=== PATIENT | female | born 1965 | race Caucasian/White ===

== ENCOUNTER 2019-12-12 12:00 | Emergency (ER) | payer OTHER, SELFPAY ==
[2019-12-12 12:07] VITALS: BP 152/89; PULSE 86; RESP 16; TEMP 36.3; O2SAT 98
[2019-12-12 12:48] LABS: Add Urine Microscopic? YES; Appearance Urine Clear (Clear); Bilirubin Urine Negative (Negative); Blood Urine 3+ (Negative); Color Urine Straw (Yellow); Glucose Urine UA Negative (Negative); Ketones Urine Negative (Negative); Leukocyte Esterase Ur 1+ LEU/UL (Negative); Mucus Urine Rare /lpf; Nitrate Urine Negative (Negative); Protein Urine 1+ mg/dL (Negative); RBC Urine 21-50 /hpf (0-2); Specific Grav Ur 1.009 (1.001-1.035); Squamous Epithelial Cell Urine Occasional /hpf (Few); Urobilinogen Urine Negative mg/dL (<2.0); WBC Urine 51-75 /hpf
--- NOTE | 2019-12-12 13:21 | ED.ABDPAIN ---
HPI - Abdominal Pain General Chief Complaint: Urogenital-Female Stated Complaint: Urinary Concerns From PCP Time Seen by Provider: 12/12/19 12:05 History of Present Illness HPI narrative: Patient is a 54-year-old female who presents with having plastic blood in her urine having some suprapubic discomfort and irritation over the last day patient denies any fever chills nausea vomiting patient presents per private vehicle in no distress Related Data Home Medications Medication Instructions Recorded Confirmed lorazepam 12/12/19 omeprazole 12/12/19 sertraline mg 12/12/19 Allergies Allergy/AdvReac Type Severity Reaction Status Date / Time No Known Allergies Allergy Verified 12/12/19 12:10 Review of Systems Review of Systems: All systems reviewed & are unremarkable except as noted in HPI and below PMFSH Social History Social History Gender identity (if verbalized by the patient): Female Exam Narrative: Exam Narrative: GENERAL: Well-appearing, well-nourished, and in no acute distress. HEAD: Normocephalic, atraumatic. EYES: PERRLA and EOMI. ENT: Nares clear, no rhinorrhea or epistaxis. Mucous membranes moist. CHEST: Clear to auscultation. No respiratory distress. No wheezes rales or rhonchi HEART: Regular rate and rhythm. No murmur heard. EXTREMITIES: Normal range of motion. No edema. SKIN: Warm, dry, no rash. NEURO: No focal deficits. Alert and oriented x3. PSYCH: Normal mood and affect. Course Course Emergency Course: Patient in the room in no distress aware of case findings treatment plan and diagnosis agreeing to follow-up as directed or to return if symptoms worsen or concerns Vital Signs Vital signs: Vital Signs Temperature 97.4 F L 12/12/19 12:07 Pulse Rate 86 12/12/19 12:07 Respiratory Rate 16 12/12/19 12:07 Blood Pressure 152/89 H 12/12/19 12:07 Pulse Oximetry 98 12/12/19 12:07 Temperature 97.4 F L 12/12/19 12:07 Pulse Rate 86 12/12/19 12:07 Respiratory Rate 16 12/12/19 12:07 Blood Pressure 152/89 H 12/12/19 12:07 Pulse Oximetry 98 12/12/19 12:07 MDM - Abdominal Pain MDM Narrative Medical decision making narrative: Patient with urinary tract infection as the likely etiology of her symptoms in the room in no distress resting comfortably afebrile nontoxic-appearing agreeing to follow-up with primary care and provided with reasons to return Lab Data Labs: Lab Results 12/12/19 Range/Units 12:15 Urine Color Straw (Yellow) Urine Appearance Clear (Clear) Urine pH 7.0 (5.0-9.0) Ur Specific Helm 1.009 (1.001-1.035) Urine Protein 1+ H (Negative) mg/dL Urine Glucose (UA) Negative (Negative) mg/dL Urine Ketones Negative (Negative) mg/dL Ur Blood (Man) 3+ H (Negative) Urine Nitrate Negative (Negative) Urine Bilirubin Negative (Negative) Urine Urobilinogen Negative (<2.0) mg/dL Leukocyte Esterase Rfl 1+ H (Negative) ANA PAULA/UL Urine RBC 21-50 H (0-2) /hpf Urine WBC 51-75 H /hpf Ur Squamous Epith Cells Occasional (Few) /hpf Urine Mucus Rare /lpf Urine Characteristics Clots Discharge Plan Discharge Clinical Impression: Urinary tract infection Patient Disposition: Home, Self-Care Condition: Stable Instructions: Antibiotic Form Additional Instructions: Follow up with primary care in the next 2-3 days for re-evaluation. Antibiotics as prescribed. Increase fluid intake. Tylenol and Motrin for pain and or fever if needed. Follow up with your doctor for further care. Call your doctor or return to the emergency department if needed for worsening symptoms or problems, especially if you have persistent high fever, vomiting, inability to urinate, weakness, blood in your urine, chnage in mental status, or other serious concerns. Prescriptions: New cephalexin [Keflex] 500 mg capsule 500 mg PO Q12H 10 Days
== END 2019-12-12 13:34 | disposition home or self-care (01) ==
PROVIDERS: Emergency Medicine Emergency Medical Services; Emergency Provider Emergency Medicine; PCP Internal Medicine
DX: N39.0 Urinary tract infection, site not specified (principal)
CPT/HCPCS: 81001; 87077; 87086; 87088; 87186; 99283

== ENCOUNTER → 2020-09-06 14:25 | Outpatient (CLI) | payer OTHER, SELFPAY ==
--- NOTE | ~2020-09-06 | MR_ITS ---
EXAMINATION: MR elbow LT wo con DATE: 09/06/2020 15:13 INDICATION: Lateral sided left elbow pain TECHNIQUE: Magnetic resonance imaging (MRI) of the left elbow was performed without intravenous contr ast. Sequences included coronal, axial, and sagittal PD-weighted FS FSE and coronal, axial, and sagit greta PD-weighted FSE. COMPARISON: None FINDINGS: Osseous/other: Normal alignment. Normal marrow signal with no marrow edema, fracture, osteochondral lesion or abnor mal marrow replacing process. Tendons: Triceps, biceps brachii and brachialis tendons are normal. Common flexor tendon wad is normal. Moder ate tendinopathy without discrete tear at the lateral epicondylar origin of the common extensor tendo n wad. Ligaments: The medial and lateral collateral ligament complexes are normal. Cubital tunnel: Cubital tunnel is unremarkable with normal signal and caliber of the ulnar nerve. Fluid: Physiologic amount of fluid the elbow joint. IMPRESSION: 1. Moderate tendinopathy without discrete tear at the lateral epicondylar origin of the common extens or tendon wad. Reviewed, dictated and finalized at location A. DEVELOPER IMPRESSION: 1. Moderate tendinopathy without discrete tear at the lateral epicondylar origi n of the common extensor tendon wad.
== END ==
PROVIDERS: Visit Provider Nurse Practitioner Family
DX: M25.522 Pain in left elbow (principal)
CPT/HCPCS: 73221

== ENCOUNTER 2021-08-04 21:47 | Emergency (ER) | payer OTHER, SELFPAY ==
[2021-08-04] VITALS (9 sets, daily range): BP systolic 137–150; BP diastolic 88–95; PULSE 84–113; RESP 12–30; TEMP 36.2; O2SAT 97–99
--- NOTE | ~2021-08-04 | XR_ITS ---
EXAMINATION: XR chest 2V EXAM DATE: 08/04/2021 22:36 INDICATION: Chest pain X 3 DAYS, Pain Lt Lateral Side, Covid 07/16/21 TECHNIQUE: Frontal and lateral projections of the chest obtained and reviewed. There is no prior christine dy for comparison. FINDINGS: The lungs are clear. There are no pleural effusions. The cardiomediastinal silhouette is within normal limits. There is no pneumothorax suspected. The bones and soft tissues are unremarkab le. IMPRESSION: No acute cardiopulmonary findings. Reviewed, dictated and finalized at location A. MANUFACTURER
--- NOTE | ~2021-08-04 | CT_ITS ---
EXAMINATION: CTA chest PE protocol DATE: 08/05/2021 08:28 CASH CLERK INDICATION: Chest pain and shortness of breath TECHNIQUE: Computed tomographic angiography (CTA) of the chest was performed with 100 mL Omnipaque-35 0 intravenous contrast. The dose-length product was 877.88 mGy-cm. Maximum intensity projection 3D-re constructions of the aorta and other arteries were constructed by the technologist on a separate work station.. Automated exposure control and iterative reconstruction technique were employed. COMPARISON: Chest x-ray dated 08/04/2019. FINDINGS: The study is technically adequate without evidence for pulmonary embolism. No evidence for thoracic aortic aneurysm or dissection. Small hiatal hernia. No significant pleural or pericardial ef fusion. No thoracic lymphadenopathy. The upper abdomen is unremarkable. No endobronchial lesions. No focal airspace disease. No pneumothorax. No suspicious pulmonary nodules or masses. No acute osseous abnormality. No acute osseous abnormality. Mild thoracic spondylosis. IMPRESSION: 1. No acute cardiopulmonary disease. No evidence for pulmonary embolism. Reviewed, dictated and finalized at location B. CLERK
--- NOTE | 2021-08-04 21:55 | ECG_ITS ---
Measurements Intervals [place] Rate: 109 P: 22 IA: 152 QRS: 48 QRSD: 87 T: 27 QT: 286 QTc: 386 Interpretive Statements SINUS TACHYCARDIA NONSPECIFIC T-WAVE ABNORMALITY- INFERIOR LEADS ABNORMAL ECG Electronically Signed On 08-05-2021 6:20:53 SENIOR PRODUCTION MANAGER by Kai Pires D.O.
[2021-08-04 22:31] LABS: Basophils Percent Auto 0.3 % (0.2-1.2); Eosinophils Absolute Auto 0.4 K/mm3 (0-0.3); Eosinophils Percent Auto 2.8 % (0-4.4); Hematocrit 42.6 % (37.0-47.0); Hemoglobin 13.8 g/dL (12.0-15.0); Immature Granulocyte Absolute 0.04 K/mm3 (0.00-0.031); Immature Granulocyte Percent A 0.3 % (0-0.5); Lymphocytes Absolute Auto 2.86 K/mm3 (0.9-3.2); Lymphocytes Percent Auto 23.2 % (18.3-44.2); Mean Corpuscular HGB Conc 32.4 g/dl (32-36); Mean Corpuscular Hemoglobin 29.1 pg (26-34); Mean Corpuscular Volume 89.7 fl (80-100); Mean Platelet Volume 10.1 fl (7.4-10.4); Monocytes Absolute Auto 0.8 K/mm3 (0.1-0.6); Monocytes Percent Auto 6.2 % (2.6-8.5); Neutrophils Absolute Auto 8.3 K/mm3 (1.3-6.7); Neutrophils Percent Auto 67.2 % (45.5-73.1); Platelet Count Result 236 k/mm3 (150-375); Red Blood Count 4.75 M/mm3 (4.2-5.4); Red Cell Distribution Width 13.2 % (11.5-14.5); White Blood Count 12.3 K/mm3 (4.5-10.0)
[2021-08-04 22:42] LABS: Alanine Aminotransferase 20 U/L (4-35); Albumin Level 4.3 g/dL (3.5-5.1); Alkaline Phosphatase 83 U/L (38-126); Anion Gap 9 mmol/L (8-16); Aspartate Amino Transferase 22 U/L (14-36); Bilirubin,Total 0.4 mg/dL (0.2-1.3); Blood Urea Nitrogen 20 mg/dL (7-17); Calcium 9.2 mg/dL (8.4-10.2); Carbon Dioxide 27 mmol/L (22-30); Chloride 103 mmol/L (98-107); Estimated CRCL calculation 81 ml/min; Estimated Glomerular Filt Rate 58; Glucose 171 mg/dL (65-110); Lipase 184 U/L (23-300); Potassium 4.1 mmol/L (3.4-5.0); Sodium 139 mmol/L (137-145)
[2021-08-04 22:49] LABS: Prothrombin Time 12.8 Seconds (11.1-14.7)
[2021-08-04 22:50] LABS: Partial Thromboplastin Time 24.7 SECONDS (22.3-36.8)
[2021-08-04 22:54] LABS: Troponin I < 0.012 ng/mL (0.000-0.034)
--- NOTE | 2021-08-04 23:34 | PC.NURSE ---
Pt here c/o chest pain under left breast, starting approx 2100. no hx of same. took 2x lorazepam bc she thought it might be a panic attack. denies pain at present. a/o x 4. resps even/nonlabored. skin pwd. resps even/nonlabored. Had covid 07/16/21.
[2021-08-05 00:01] VITALS: PULSE 85
--- NOTE | 2021-08-05 00:07 | ED.GENADULT ---
HPI - General Adult General Chief complaint: Chest Pain Stated complaint: chest pain Time Seen by Provider: 08/04/21 22:57 History of Present Illness HPI narrative: Patient 55-year-old female who presents the emergency department with chief complaint of chest discomfort. Patient reports that she recently had COVID she is also under a lot of stress and has remote history of a superficial thrombus that she was treated with anticoagulants for period of time. The patient states that this evening she felt rather anxious noticed her heart was beating a little fast she took 2 Xanax and then started having discomfort in the left side of her chest patient reports the pain is essentially gone at this point reports heart rate is slowed down back to his normal rate. The patient reports she did get a little short of breath with this when it happened when her heart was beating fast and reports that she had no syncope. The patient states that the pain improved on its own and did not require any interventions. Related Data Home Medications Medication Instructions Recorded Confirmed omeprazole 20 mg PO DAILY 12/12/19 07/01/21 lorazepam 0.5 mg tablet 0.5 mg PO PRN PRN 05/28/21 07/01/21 sertraline 50 mg tablet 50 mg PO DAILY tablet 05/28/21 07/01/21 phentermine 37.5 mg PO DAILY 07/01/21 07/01/21 Allergies Allergy/AdvReac Type Severity Reaction Status Date / Time No Known Allergies Allergy Verified 08/05/21 00:03 Review of Systems Review of Systems: A 10 system review of systems was completed on the patient and is negative except for what is stated in the HPI. Nursing and ancillary documentation was reviewed. [facility] Past Medical History Medical History Anxiety Arthritis Chondromalacia, patella Chronic GERD Chronic headaches Diabetes High cholesterol History of left lateral epicondylitis Lateral epicondylitis Left elbow pain Patellofemoral syndrome Right knee DJD Seasonal allergies Vision abnormalities Surgical History Surgical History Hx of breast lump removal benign Family History Family History Other Arthritis Diabetes mellitus Heart disease Hypertension Malignant neoplasm Social History Social History Smoking status: Former smoker Tobacco type: cigarettes Smoking end date: 07/13/94 Alcohol intake: current Drinks per week: 1 Alcohol use details: rarely Substance use: never Substance use type: does not use Gender identity (if verbalized by the patient): Female Spiritual care concerns: No Exam Narrative: GENERAL: Well-appearing, well-nourished, and in no acute distress. HEAD: Normocephalic, atraumatic. EYES: PERRLA and EOMI. ENT: Nares clear, no rhinorrhea or epistaxis. Mucous membranes moist. NECK: Supple. CHEST: Clear to auscultation. No respiratory distress. HEART: Regular rate and rhythm. No murmur heard. Normal peripheral pulses. ABDOMEN: Soft, nontender, nondistended, normal active bowel sounds. EXTREMITIES: Normal range of motion. No edema. SKIN: Warm, dry, no rash. NEURO: No focal deficits. Alert and oriented x3. PSYCH: Normal mood and affect. Course Course Emergency Course: EKG sinus tachycardia rate of [address] elevation or ST depression cta chest shows no evidence of PE Vital Signs Vital signs: Vital Signs Temperature 36.2 C L 08/04/21 21:51 Pulse Rate 113 H 08/04/21 21:51 Respiratory Rate 16 08/04/21 21:51 Blood Pressure 137/93 H 08/04/21 21:51 Pulse Oximetry 99 08/04/21 21:51 Temperature 36.2 C L 08/04/21 21:51 Pulse Rate 85 08/05/21 00:01 Respiratory Rate 23 H 08/04/21 23:45 Blood Pressure 150/95 H 08/04/21 23:06 Pulse Oximetry 98 08/04/21 23:45 Medical Decision Ma
== END 2021-08-05 01:25 | disposition home or self-care (01) ==
PROVIDERS: Emergency Provider Emergency Medicine; PCP Nurse Practitioner
DX: R07.89 Other chest pain (principal); E11.9 Type 2 diabetes mellitus without complications; E78.00 Pure hypercholesterolemia, unspecified; K21.9 Gastro-esophageal reflux disease without esophagitis; Z86.16 Personal history of COVID-19; F41.9 Anxiety disorder, unspecified; Z87.891 Personal history of nicotine dependence; R00.0 Tachycardia, unspecified; R94.31 Abnormal electrocardiogram [ECG] [EKG]
CPT/HCPCS: 36415; 71046; 71275; 80053; 83690; 84484; 85025; 85610; 85730; 87081; 87880; 93005; 99284; Q9967

== ENCOUNTER 2021-08-20 00:41 | Day surgery (SDC) | payer OTHER, SELFPAY ==
[2021-07-01 11:02] VITALS: BMI 46.9
[2021-08-16 14:28] VITALS: BMI 46.9
[2021-08-20 06:54] VITALS: BP 144/90; PULSE 100; RESP 20; TEMP 35.7; O2SAT 98
[2021-08-20] MEDS: LACTATED RINGERS 1,000 ML 150 ML IV CONT (07:09)
--- NOTE | 2021-08-20 07:16 | WPDGICN ---
Assessment and Plan Assessment and plan (1) Encounter for screening colonoscopy: Code(s): Z12.11 - Encounter for screening for malignant neoplasm of colon Status: Acute Assessment and Plan: Patient presents for screening colonoscopy. Appears to be at average risk for colon polyps. (2) Obese: Code(s): E66.9 - Obesity, unspecified Status: Acute GI Consult Note Consult date/time: 08/20/21 07:16 HPI: Ivonne Lin is a 55 year old female Presents for screening colonoscopy. Patient's current weight appetite bowel movements are normal. She denies abdominal pain. She has had no bleeding. Family history noncontributory. Patient had a colonoscopy 10 years ago that she states is unremarkable. Neoplasia screening will be performed today. Review of Systems Review of Systems: All systems reviewed & are unremarkable except as noted in HPI and below PMFSH Past Medical History Medical History Anxiety Arthritis Chondromalacia, patella Chronic GERD Chronic headaches Diabetes High cholesterol History of left lateral epicondylitis Lateral epicondylitis Left elbow pain Patellofemoral syndrome Right knee DJD Seasonal allergies Vision abnormalities Surgical History Surgical History Hx of breast lump removal benign Family History Family History Other Arthritis Diabetes mellitus Heart disease Hypertension Malignant neoplasm Social History Social History (System 08/06/21 @ 12:17 by Liam Posadas) Smoking status: Former smoker Tobacco type: cigarettes Smoking end date: 07/13/94 Alcohol intake: current Drinks per week: 1 Alcohol use details: rarely Substance use: never Substance use type: does not use Living arrangements: with family Gender identity (if verbalized by the patient): Female Spiritual care concerns: No Meds Home Medications and Allergies Home Medications Medication Instructions Recorded Confirmed Type omeprazole 20 mg PO DAILY 12/12/19 07/01/21 History lorazepam 0.5 mg tablet 0.5 mg PO PRN PRN 05/28/21 07/01/21 History sertraline 50 mg tablet 50 mg PO DAILY tablet 05/28/21 07/01/21 History Allergies Allergy/AdvReac Type Severity Reaction Status Date / Time iodine Allergy Unknown Rash Verified 08/20/21 06:51 Vital Signs Vital Signs - 24 hr 08/20/21 06:54 Temperature 96.3 F L Pulse Rate 100 Respiratory Rate 20 Blood Pressure 144/90 H Pulse Oximetry 98 Exam Narrative: Physical exam reveals patient be alert. Vital signs stable. HEENT exam is unremarkable. Patient is anicteric. Lungs are clear to auscultation and percussion. Heart is without murmur or extra sounds. Abdominal exam Is obese. bowel sounds are present soft nontender with no organomegaly. Digital external rectal exam is normal.
--- NOTE | 2021-08-20 08:03 | WPDANESEPPF ---
Anes - Initial Pre Proc Eval Procedure: Operation Date: 08/20/21 08:00 Proposed Procedures p Screening Colonoscopy - Raad Goodson MD Date/Time: 08/20/21 08:03 Surgeon: Raad Goodson MD Pre Op Diagnosis: neoplasm screening Patient Data Age: 55 Gender: F Height: 1.7 m Weight: 139.3 kg Last Vital Signs Temp 96.3 F L 08/20/21 06:54 Pulse 100 08/20/21 06:54 Resp 20 08/20/21 06:54 BP 144/90 H 08/20/21 06:54 Pulse Ox 98 08/20/21 06:54 Allergies Allergy/AdvReac Type Severity Reaction Status Date / Time iodine Allergy Unknown Rash Verified 08/20/21 06:51 Home Medications Medication Instructions Recorded Confirmed Type omeprazole 20 mg PO DAILY 12/12/19 07/01/21 History lorazepam 0.5 mg tablet 0.5 mg PO PRN PRN 05/28/21 07/01/21 History sertraline 50 mg tablet 50 mg PO DAILY tablet 05/28/21 07/01/21 History Patient hx anesthesia problems: none Family hx anesthesia problems: none Results Review: All pre-operative results and documents have been reviewed as part of the pre-operative evaluation. [facility] Past Medical History Medical History Anxiety Arthritis Chondromalacia, patella Chronic GERD Chronic headaches Diabetes High cholesterol History of left lateral epicondylitis Lateral epicondylitis Left elbow pain Patellofemoral syndrome Right knee DJD Seasonal allergies Vision abnormalities Surgical History Surgical History Hx of breast lump removal benign Family History Family History Other Arthritis Diabetes mellitus Heart disease Hypertension Malignant neoplasm Social History Social History (System 08/06/21 @ 12:17 by Liam Posadas) Smoking status: Former smoker Tobacco type: cigarettes Smoking end date: 07/13/94 Alcohol intake: current Drinks per week: 1 Alcohol use details: rarely Substance use: never Substance use type: does not use Living arrangements: with family Gender identity (if verbalized by the patient): Female Spiritual care concerns: No Anes - Eval Final PreProcedure Day of Procedure 08/20/21 08:03 Patient weight: morbidly obese Heart: regular rate and rhythm Lungs: clear to auscultation Airway: Mallampati scale class II Neurological: alert and oriented Last oral intake: >/= 8 hours ASA classification: III Emergent: no Anesthetic plan: proceed Anesthesia type and monitoring: general GIVS Results Review: All pre-operative results and documents have been reviewed as part of the pre-operative evaluation. Informed Consent: The patient's anesthetic plan and its attendant risks and benefits were discussed with the patient/family/POA. Questions were solicited and answers provided to the satisfaction of the patient/family/POA.
[2021-08-20 08:16] VITALS: BP 127/81; PULSE 85; RESP 20; O2SAT 97
[2021-08-20 08:26] VITALS: BP 149/101; PULSE 79; RESP 21; O2SAT 96
[2021-08-20 08:36] VITALS: BP 152/97; PULSE 83; RESP 23; O2SAT 95
== END 2021-08-20 08:41 | disposition home or self-care (01) ==
PROVIDERS: PCP Nurse Practitioner; Visit Provider Internal Medicine Gastroenterology
PROC: 0DJD8ZZ Inspection of Lower Intestinal Tract, Via Natural or Artificial Opening Endoscopic (ICD-10-PCS; CPT 45378; principal; 2021-08-20 08:00)
DX: Z12.11 Encounter for screening for malignant neoplasm of colon (principal); K64.8 Other hemorrhoids; F41.9 Anxiety disorder, unspecified; M19.90 Unspecified osteoarthritis, unspecified site; M22.40 Chondromalacia patellae, unspecified knee; K21.9 Gastro-esophageal reflux disease without esophagitis; E11.9 Type 2 diabetes mellitus without complications; Z87.891 Personal history of nicotine dependence; E66.9 Obesity, unspecified; Z68.42 Body mass index [BMI] 45.0-49.9, adult
CPT/HCPCS: G0121; J2704; J7120

== ENCOUNTER 2021-11-30 14:05 | Emergency (ER) | payer OTHER, SELFPAY ==
[2021-11-30 14:16] VITALS: BP 146/103; PULSE 83; RESP 18; TEMP 36.4; O2SAT 98
--- NOTE | 2021-11-30 14:33 | ED.DENTAL ---
HPI - Dental/Oral General Chief complaint: Dental/Oral Stated complaint: Lt Mouth Pain Time Seen by Provider: 11/30/21 14:33 Source: patient Mode of arrival: ambulatory Limitations: no limitations History of Present Illness HPI Narrative: Ivonne Lin is a 56 yo female with a hx of crown 5 weeks ago L upper molar, given steroid for pain by dentist a week later, then called pcp as pain persisted and put on abx. Pain is 8/10 now in L ear, jaw, cheek, used oragel, advil last night, today still in pain- rated 8/10 Related Data Home Medications Medication Instructions Recorded Confirmed omeprazole 20 mg PO DAILY 12/12/19 11/30/21 lorazepam 0.5 mg tablet 0.5 mg PO PRN PRN 05/28/21 11/30/21 sertraline 50 mg tablet 50 mg PO DAILY tablet 05/28/21 11/30/21 Allergies Allergy/AdvReac Type Severity Reaction Status Date / Time iodine Allergy Mild Rash Verified 11/30/21 14:12 Review of Systems Review of Systems: CONSTITUTIONAL: Denies fever, chills, sweats. EYES: Denies visual changes, redness, discharge. ENT: Denies rhinorrhea, congestion, sore throat, otalgia. CARDIOVASCULAR: Denies chest pain, palpitations, edema. RESPIRATORY: Denies dyspnea, wheezing, cough GASTROINTESTINAL: Denies abdominal pain, nausea, vomiting, diarrhea. GENITOURINARY: Denies dysuria, hematuria, abnormal discharge SKIN: Denies rash or itching. NEUROLOGIC: Denies numbness, or focal weakness. PSYCHIATRIC: Denies anxiety or depression. Left-sided jaw/tooth, ear pain PMFSH Past Medical History Medical History Anxiety Arthritis Chondromalacia, patella Chronic GERD Chronic headaches Diabetes High cholesterol History of left lateral epicondylitis Lateral epicondylitis Left elbow pain Patellofemoral syndrome Right knee DJD Seasonal allergies Vision abnormalities Surgical History Surgical History Hx of breast lump removal benign Family History Family History Mother Family history of malignant neoplasm of breast in first degree relative Father Family history of mental disorder Hypertension Family history of elevated blood lipids Other Arthritis Carcinoma of colon Diabetes mellitus Family history of alcoholism Family history of arthritis Family history of atrial fibrillation Family history of hearing loss Family history of malignant neoplasm of male breast Family history of osteoporosis Family history of pancreatic cancer Heart disease Malignant neoplasm Social History Social History Smoking status: Former smoker Tobacco type: cigarettes Smoking end date: 07/13/94 Alcohol intake: current Drinks per week: 1 Alcohol use details: rarely Substance use: never Substance use type: does not use Gender identity (if verbalized by the patient): Female Spiritual care concerns: No Comments At time of signature, I agree with nursing past medical, surgical, social and family history. There is no relevant family history pertinent to the presenting complaint. Exam Narrative: GENERAL: This is a well-nourished, well-developed patient, in mild distress. HEAD: normocephalic, atraumatic. EYES: Sclera clear/white. Vision is grossly intact. EARS: External ears normal, auditory canals erythematous and left with swelling, TMs normal without perforation. Hearing grossly intact. NOSE: External nose normal without nasal discharge, nares without redness, no rhinorrhea. Mouth: Poor dentition, multiple teeth missing THROAT: Mucous membranes moist, posterior pharynx mild erythema NECK: Neck supple, non-tender CARDIOVASCULAR: Regular rate and rhythm without murmurs, gallops, or rubs. RESPIRATORY: Clear to auscultation. Breath sounds equal bilaterally. No wheezes, rales, or rhonchi. GASTROINTESTINAL: Abdo
== END 2021-11-30 14:58 | disposition home or self-care (01) ==
PROVIDERS: Emergency Provider Nurse Practitioner; PCP Nurse Practitioner
DX: K08.89 Other specified disorders of teeth and supporting structures (principal); H66.92 Otitis media, unspecified, left ear; Z87.891 Personal history of nicotine dependence; K21.9 Gastro-esophageal reflux disease without esophagitis; E11.9 Type 2 diabetes mellitus without complications; E78.00 Pure hypercholesterolemia, unspecified; M17.11 Unilateral primary osteoarthritis, right knee; F41.9 Anxiety disorder, unspecified
CPT/HCPCS: 99213; G0463

== ENCOUNTER 2022-11-30 14:03 | Emergency (ER) | payer OTHER, SELFPAY ==
[2022-11-30 14:12] VITALS: BP 85/61; PULSE 127; RESP 20; TEMP 36.3; O2SAT 95
--- NOTE | 2022-11-30 14:27 | ED.GENADULT ---
HPI - General Adult General Chief complaint: Allergic Reaction Stated complaint: Vomiting,Itching,Diarrhea Time Seen by Provider: 11/30/22 14:11 Source: patient and RN notes reviewed Mode of arrival: ambulatory Limitations: no limitations History of Present Illness HPI narrative: Patient presents today complaining of sudden onset nausea, vomiting, diarrhea, lower abdominal cramping, and rash to her legs and chest that is severely pruritic. Symptoms began 1.5 hours prior to arrival. She took her Wegovy injection this morning as well as ate some cheerios and a plum. She took a swig of children's benadryl at home as she didn't have any adult Benadryl. Denies shortness of breath, difficulty swallowing, swelling to her face or mouth. Related Data Home Medications Medication Instructions Recorded Confirmed omeprazole 20 mg capsule,delayed 20 mg PO DAILY 12/12/19 11/30/21 release lorazepam 0.5 mg tablet 0.5 mg PO PRN PRN Anxiety 05/28/21 11/30/21 sertraline 50 mg tablet 50 mg PO DAILY 05/28/21 11/30/21 Allergies Allergy/AdvReac Type Severity Reaction Status Date / Time iodine Allergy Mild Rash Verified 11/30/22 14:33 Review of Systems Review of Systems: CONSTITUTIONAL: Denies body aches, fever, chills, or sweats. EYES: Denies visual changes, redness, or discharge. ENT: Denies rhinorrhea, congestion, sore throat, or otalgia. CARDIOVASCULAR: Denies chest pain, palpitations, or edema. RESPIRATORY: Denies cough or dyspnea. GASTROINTESTINAL: + abdominal cramping, nausea, vomiting, diarrhea GENITOURINARY: Denies dysuria or hematuria. SKIN: + pruritic rash MUSCULOSKELETAL: Denies back pain, joint pain, or myalgia. NEUROLOGIC: Denies headache, numbness, tingling, or weakness. PSYCH: Denies depression or anxiety. FORMERLY [facility], 1928–1983 Past Medical History Medical History Anxiety Arthritis Chondromalacia, patella Chronic GERD Chronic headaches Diabetes High cholesterol History of left lateral epicondylitis Lateral epicondylitis Left elbow pain Patellofemoral syndrome Right knee DJD Seasonal allergies Vision abnormalities Surgical History Surgical History Hx of breast lump removal benign Family History Family History Mother Family history of malignant neoplasm of breast in first degree relative Father Family history of mental disorder Hypertension Family history of elevated blood lipids Other Arthritis Carcinoma of colon Diabetes mellitus Family history of alcoholism Family history of arthritis Family history of atrial fibrillation Family history of hearing loss Family history of malignant neoplasm of male breast Family history of osteoporosis Family history of pancreatic cancer Heart disease Malignant neoplasm Social History Social History Smoking status: Former smoker Tobacco type: cigarettes Smoking end date: 07/13/94 Alcohol intake: current Drinks per week: 1 Alcohol use details: rarely Substance use: never Substance use type: does not use Living arrangements: with family Gender identity (if verbalized by the patient): Female Spiritual care concerns: No Course Course Level of Care: Express Care Visit Vital Signs Vital signs: Vital Signs Temperature 97.4 F L 11/30/22 14:12 Pulse Rate 127 H 11/30/22 14:12 Respiratory Rate 11/30/22 14:12 Blood Pressure 85/61 L 11/30/22 14:12 Pulse Oximetry 95 11/30/22 14:12 Oxygen Delivery Room Air 11/30/22 14:12 Temperature 97.4 F L 11/30/22 14:12 Pulse Rate 127 H 11/30/22 14:12 Respiratory Rate 11/30/22 14:12 Blood Pressure 85/61 L 11/30/22 14:12 Pulse Oximetry 95 11/30/22 14:12 Oxygen Delivery Room Air 11/30/22 14:12 Reviewed. Recheck of patient's blood
[2022-11-30] MEDS: diphenhydrAMINE HCl INJ 50 MG/ML VIAL IV PUSH (14:35)
[2022-11-30 14:40] VITALS: BP 101/69; PULSE 125; RESP 18; O2SAT 99
== END 2022-11-30 14:40 | disposition short-term general hospital (02) ==
PROVIDERS: Emergency Provider Nurse Practitioner; PCP Nurse Practitioner
DX: T78.40XA Allergy, unspecified, initial encounter (principal); M19.90 Unspecified osteoarthritis, unspecified site; K21.9 Gastro-esophageal reflux disease without esophagitis; E11.9 Type 2 diabetes mellitus without complications; E78.00 Pure hypercholesterolemia, unspecified; M17.11 Unilateral primary osteoarthritis, right knee; F41.9 Anxiety disorder, unspecified; Z87.891 Personal history of nicotine dependence
CPT/HCPCS: 96374; 99215; G0463; J1200

== ENCOUNTER 2022-11-30 14:59 | Emergency (ER) | payer OTHER, SELFPAY ==
[2022-11-30 15:00] VITALS: BP 130/64; PULSE 87; RESP 15; O2SAT 95
--- NOTE | 2022-11-30 15:25 | PC.NURSE ---
All patient documentation completed by this RN, Flavia Correa. Due to computer error documentation appears as though it was documented by another RN. It was not and was in fact documented by this RN.
--- NOTE | 2022-11-30 15:25 | ED.ALLEREA ---
HPI - Allergic Reaction General Chief complaint: Allergic Reaction Stated complaint: allergic reaction Time Seen by Provider: 11/30/22 15:06 History of Present Illness HPI narrative: 57-year-old female presented to the emergency department for evaluation after a suspected allergic reaction. Patient has no prior medication allergies other than iodine. Patient did take her fourth Wegovy shot today. Patient had no prior issues with the other shots. Patient states after taking the shot having had breakfast of foods that she normally eats patient had onset of abdominal cramping diarrhea and nausea vomiting. Patient states he then broke out in an itchy rash on her hands arms chest and legs. Patient denied any difficulty breathing or swallowing. Patient did present to the urgent care for evaluation and patient was treated with IV Benadryl and transferred to the emergency department by EMS. Upon arrival to the ED patient states that the itching has improved but she does feel swollen. Patient denies any difficulty breathing or swallowing at this time. Patient does report some epigastric tenderness to palpation. Related Data Home Medications Medication Instructions Recorded Confirmed omeprazole 20 mg capsule,delayed 20 mg PO DAILY 12/12/19 11/30/22 release sertraline 50 mg tablet 50 mg PO DAILY 05/28/21 11/30/22 semaglutide (weight loss) 0.25 0.25 mg subcut WEEKLY 11/30/22 11/30/22 mg/0.5 mL subcutaneous pen injector (Wegovy) Allergies Allergy/AdvReac Type Severity Reaction Status Date / Time iodine Allergy Mild Rash Verified 11/30/22 15:10 Review of Systems Review of Systems: All systems reviewed & are unremarkable except as noted in HPI and below PMFSH Past Medical History Medical History Anxiety Arthritis Chondromalacia, patella Chronic GERD Chronic headaches Diabetes High cholesterol History of left lateral epicondylitis Lateral epicondylitis Left elbow pain Patellofemoral syndrome Right knee DJD Seasonal allergies Vision abnormalities Surgical History Surgical History Hx of breast lump removal benign Family History Family History Mother Family history of malignant neoplasm of breast in first degree relative Father Family history of mental disorder Hypertension Family history of elevated blood lipids Other Arthritis Carcinoma of colon Diabetes mellitus Family history of alcoholism Family history of arthritis Family history of atrial fibrillation Family history of hearing loss Family history of malignant neoplasm of male breast Family history of osteoporosis Family history of pancreatic cancer Heart disease Malignant neoplasm Social History Social History Smoking status: Former smoker Tobacco type: cigarettes Smoking end date: 07/13/94 Alcohol intake: current Drinks per week: 1 Alcohol use details: rarely Substance use: never Substance use type: does not use Living arrangements: with family Gender identity (if verbalized by the patient): Female Spiritual care concerns: No Exam Narrative: APPEARANCE: Well appearing, no pain, no distress, well-nourished. HEAD: normocephalic, atraumatic. EYES: PERRLA/EOMI, conjunctivae clear. NOSE: Normal no drainage NECK: Supple. No adenopathy, no masses. RESPIRATORY: Airway patent, respirations nonlabored. Clear to auscultation bilaterally, no rales, rhonchi, wheezing. CARDIOVASCULAR: Regular rate and rhythm without murmurs rubs or gallops. ABDOMINAL: Soft, normal bowel sounds, nondistended, epigastric tenderness to palpation MUSCULOSKELETAL: Moves all extremities. Strength/ROM intact, No edema, No calf tenderness. NEURO: Alert. Cranial nerves II through XII intact. Grossly intact SKIN: Wa
[2022-11-30] MEDS: methylPREDNISolone SOD SUCC 125 MG VIAL IV PUSH (15:34)
[2022-11-30 16:30] LABS: Basophils Percent Auto 0.3 % (0.2-1.2); Eosinophils Absolute Auto 0.1 K/mm3 (0-0.3); Eosinophils Percent Auto 0.5 % (0-4.4); Hematocrit 45.8 % (37.0-47.0); Hemoglobin 14.9 g/dL (12.0-15.0); Immature Granulocyte Absolute 0.03 K/mm3 (0.00-0.031); Immature Granulocyte Percent A 0.3 % (0-0.5); Lymphocytes Absolute Auto 1.35 K/mm3 (0.9-3.2); Lymphocytes Percent Auto 12.4 % (18.3-44.2); Mean Corpuscular HGB Conc 32.5 g/dl (32-36); Mean Corpuscular Hemoglobin 29.1 pg (26-34); Mean Corpuscular Volume 89.5 fl (80-100); Mean Platelet Volume 9.7 fl (7.4-10.4); Monocytes Absolute Auto 0.5 K/mm3 (0.1-0.6); Monocytes Percent Auto 4.7 % (2.6-8.5); Neutrophils Absolute Auto 8.9 K/mm3 (1.3-6.7); Neutrophils Percent Auto 81.8 % (45.5-73.1); Platelet Count Result 230 k/mm3 (150-375); Red Blood Count 5.12 M/mm3 (4.2-5.4); Red Cell Distribution Width 13.4 % (11.5-14.5); White Blood Count 10.9 K/mm3 (4.5-10.0)
[2022-11-30 16:31] LABS: Alanine Aminotransferase 25 U/L (6-35); Albumin Level 4.1 g/dL (3.5-5.1); Alkaline Phosphatase 72 U/L (38-126); Anion Gap 8 mmol/L (8-16); Aspartate Amino Transferase 27 U/L (14-36); Bilirubin,Total 0.7 mg/dL (0.2-1.3); Blood Urea Nitrogen 18 mg/dL (7-17); Calcium 8.6 mg/dL (8.4-10.2); Carbon Dioxide 27 mmol/L (22-30); Chloride 104 mmol/L (98-107); Estimated CRCL calculation 78 ml/min; Estimated Glomerular Filt Rate 57; Glucose 128 mg/dL (65-110); Lipase 100 U/L (23-300); Potassium 3.5 mmol/L (3.4-5.0); Sodium 139 mmol/L (137-145)
[2022-11-30 16:59] VITALS: BP 132/60; PULSE 83; RESP 17; TEMP 37.1; O2SAT 99
== END 2022-11-30 17:01 | disposition home or self-care (01) ==
PROVIDERS: Emergency Provider Emergency Medicine; PCP Nurse Practitioner
DX: R11.2 Nausea with vomiting, unspecified (principal); R10.9 Unspecified abdominal pain; L29.9 Pruritus, unspecified; T38.3X5A Adverse effect of insulin and oral hypoglycemic [antidiabetic] drugs, initial encounter; E11.9 Type 2 diabetes mellitus without complications; E78.00 Pure hypercholesterolemia, unspecified; M17.11 Unilateral primary osteoarthritis, right knee; K21.9 Gastro-esophageal reflux disease without esophagitis; F41.9 Anxiety disorder, unspecified; Z87.891 Personal history of nicotine dependence
CPT/HCPCS: 36415; 80053; 83690; 85025; 96374; 99284; J2930

== ENCOUNTER 2023-09-29 14:58 | Outpatient (CLI) | payer OTHER, SELFPAY ==
--- NOTE | ~2023-09-29 | CT_ITS ---
EXAMINATION: CT abdomen pelvis w con DATE: 09/29/2023 15:46 INDICATION: Epigastric abdominal pain, bloating. TECHNIQUE: Computed tomography (CT) of the abdomen and pelvis was performed with 100 CC Omnipaque 350 intravenous contrast. Automated exposure control and iterative reconstruction technique were employe d. Exam dose: 1622.41 mGy-cm total exam DLP. COMPARISON: None. FINDINGS: The lung bases are clear of infiltrate or consolidation. Normal heart size. No pericardial or pleural effusion. The gallbladder is present. No bile duct or pancreatic duct dilatation. Hepatic steatosis. No hepatic, splenic, pancreatic, and adrenal space-occupying mass lesion. 1.4 cm r ight renal cyst. The kidneys are otherwise unremarkable. No urinary tract calculus or hydroureteronep hrosis. The urinary bladder, uterus and adnexal areas are unremarkable. Normal caliber of the abdominal aorta. No intraperitoneal or retroperitoneal or pelvic mass lesion or adenopathy or ascites. The uterus, adnexal areas and urinary bladder are unremarkable. Small sliding hiatal hernia. Mild sigmoid diverticulosis; no CT evidence of diverticulitis. No bowel obstruction, bowel wall thick ening, pneumatosis or intraperitoneal free air. No evidence of appendicitis. No suspicious osteolytic or osteoblastic lesions. IMPRESSION: Small sliding hiatal hernia Hepatic steatosis 1.4 cm right renal cyst Normal appendix Mild sigmoid diverticulosis Reviewed, dictated and finalized at [facility]. Reviewed, dictated and finalized at location L.
== END 2023-09-29 14:59 | disposition home or self-care (01) ==
LOC: ANHIMG 15:01
PROVIDERS: PCP Nurse Practitioner; Visit Provider Nurse Practitioner
DX: R11.0 Nausea (principal); R10.13 Epigastric pain; K44.9 Diaphragmatic hernia without obstruction or gangrene; K76.0 Fatty (change of) liver, not elsewhere classified; K57.30 Diverticulosis of large intestine without perforation or abscess without bleeding
CPT/HCPCS: 74177; Q9967

== ENCOUNTER 2024-12-27 10:48 | Outpatient (CLI) | payer OTHER, SELFPAY ==
--- NOTE | ~2024-12-27 | US_ITS ---
LEFT UPPER EXTREMITY VENOUS ULTRASOUND Ordering provider: DESMOND Sapp History: . M79.602 - Pain in arm, unspecified . Comparison: None. FINDINGS: --JUGULAR: Patent and free of thrombus. Normal compressibility, phasic flow and augmentation. --SUBCLAVIAN: Patent and free of thrombus. Normal compressibility, phasic flow and augmentation. --AXILLARY: Patent and free of thrombus. Normal compressibility, phasic flow and augmentation. --BRACHIAL: Patent and free of thrombus. Normal compressibility, phasic flow and augmentation. --CEPHALIC: Patent and free of thrombus. Normal compressibility, phasic flow and augmentation. --BASILIC: Patent and free of thrombus. Normal compressibility, phasic flow and augmentation. --RADIAL: Patent and free of thrombus. Normal compressibility, phasic flow and augmentation. --ULNAR: Patent and free of thrombus. Normal compressibility, phasic flow and augmentation. IMPRESSION: Negative left upper extremity venous US. No deep vein thrombosis. Reviewed, dictated and finalized at location A.
--- OUTSIDE RECORDS SUMMARY | 2024-12-27 11:55 | XMS_ITS | Clinical Summary ---
Author Organization [facility] Address [address] [place] [address] Care Team Providers Care Machine Cloth Trimmer Name Role Phone Unavailable Primary Care Provider Unavailabl e Social History Tobacco Use Types Packs/Day Years Used Date Smoking Tobacco: Never Assessed Comments Unknown Sex and Gender Information Value Date Recorded Sex Assigned at Not on file Legal Sex Female 12:44 AM CDT Gender Identity Not on file Sexual Orientation Not on file Plan of Treatment Health Maintenance Due Date Last Done Comments Hepatitis C Virus (HCV) Screening 1966 TdaP Immunization 1966 Hepatitis B Immunization (1 of 3 - 19+ 3-dose series) 1985 Pap Smear 09/28/1987 Cervical Cancer Screening (CCS) 1996 HPV/Cotest 1996 Colonoscopy 09/28/2011 Colorectal Cancer Screening 09/28/2011 Cologuard 2016 Immunochemical Fecal Occult Blood 2016 Mammogram 2016 Pneumococcal Immunization (5 0+ years) (1 of 1 - PCV) 2016 Zoster Immunization (1 of 2) 2016 Influenza Immunization (#1) 2024 04/25/2020 SARS-COV-2 Immunization (2023- season) 2024 09/30/2020, 09/09/2020 Respiratory Syncytial Virus (RSV) Immunization (Adult) (1 - 1-dose 75+ series) 2041 Meningococcal Immunization (ACWY) Aged Out No longer eligible b ased on patient's age to complete this topic Pneumococcal Immunization Combined Aged Out No longer eligible b ased on patient's age to complete this topic Rotavirus Immunization Aged Out No lo nger eligible based on patient's age to complete this topic
--- OUTSIDE RECORDS SUMMARY | 2024-12-27 11:55 | XMS_ITS | CONTINUITY OF CARE DOCUMENT ---
Author Name foreign carrasquillo Address Unknown Organization [facility] Address [id number] [place] [address] [address] [place] [address] Phone [phone] Care Team Providers Care Conciliator Name Role Phone foreign carrasquillo Unavailable Unavailable
--- OUTSIDE RECORDS SUMMARY | 2024-12-27 11:55 | XMS_ITS | Clinical Summary ---
Author Organization [facility] Address [address] [address] Care Team Providers Care Reject Opener Name Role Phone Ángela Laird APRN-[facility] Primary Care Provi yeyo Source Comments [facility] [employer],non-owned Affiliates and Associated Physician Practices is amultiple site organization consisting of ambulatory clinics and hospital sitesin [place], [place]. This disclosure is being madepursuant to the Care Everywhere program and may not contain all information available regarding this patient. Last updated 18.[facility] Active Problems Problem Noted Date Diagnosed Date Fatty liver 11/27/2023 Overview (11/27/2023): 11/27/23 Fibroscan CAP 270, LSM 4.8 kPa Social History Tobacco Use Types Packs/Day Years Used Date Smoking Tobacco: Never Assessed Comments Unknown Sex and Gender Information Value Date Recorded Sex Assigned at Not on file Legal Sex Female 8:23 AM CDT Gender Identity Not on file Sexual Orientation Not on file Plan of Treatment Health Maintenance Due Date Last Done Comments COLOGUARD (AGES 45-75) - COLON CA SCREENING 1966 COLON MONITORING 1966 COLONOSCOPY - COLON CA SCREENING 1966 CT COLONOGRAPHY - COLON CA SCREENING 1966 Colorectal Cancer Screening 1966 FIT - COLON CA SCREENING 1966 FLEX SIG - COLON CA SCREENING 1966 LIPID TESTING 1966 PAP SMEAR 1966 HIV SCREENING 1981 DTAP/TDAP/TD VACCINES (1 - Tdap) 1985 HEPATITIS B VACCINE (1 of 3 - 19+ 3-dose series) 1985 PNEUMOCOCCAL VACCINE 50+ (1 of 1 - PCV) 2016 ZOSTER VACCINE (1 of 2) 2016 COVID-19 VACCINE (2 - season) 2024 08/11/2021 DEPRESSION SCREENING 07/13/2024 MAMMOGRAM 12/25/2024 12/25/2022, 03/2022, 10/29/2020, Additional history exists INFLUENZA VACCINE (Season Ended) 2025 04/25/2020 HEPATITIS C SCREENING Completed 12/05/2022 HIB VACCINE Aged Out No longer eligi ble based on patient's age to complete this topic HPV VACCINE Aged Out No longer eligi ble based on patient's age to complete this topic MENINGOCOCCAL (Group B) VACCINE SHARED DECISION-MAKING Aged Out No longer eligible based on patient's age to complete this topic MENINGOCOCCAL GROUPS A/C/Y/W VACCINE Aged Out No longer eligible based on patient's age to complete this topic Insurance [facility] Care Teams Reject Opener Relationship Specialty Start Date End Date Ángela Laird APRN-[facility] [address], [address] [place] [address] PCP - General Nurse Practitioner 11/13/23
--- OUTSIDE RECORDS SUMMARY | 2024-12-27 11:55 | XMS_ITS | Continuity of Care Document ---
Author Organization [facility] Address [address] [place] [address] [place] [address] Phone Care Team Providers Care Ship Scraper Name Role Phone Unavailable Unavailable Unavailable Advance Directives Directive Yes / No Effective Date File Name No Information Encounters Encounter Description Practice Location Reason(s) For Visit Diagnoses Date Provider Providers Copied on Encounter [facility], [address] [place] [address] [address], [place], [place], [id number], [place] tel:[phone] [facility] [place] No Information Mar-2 1-200 0 No Information Family History Family Member Type Diagnosis Age At Onset No Information Payers Payer name Insurance type Covered republican ID Authoriza tion(s) No Information Social History [...]
== END 2024-12-27 10:49 | disposition home or self-care (01) ==
LOC: ANHIMG 10:49
PROVIDERS: PCP Nurse Practitioner; Visit Provider Nurse Practitioner Family
DX: M79.602 Pain in left arm (principal)
CPT/HCPCS: 93971

== ENCOUNTER 2025-04-05 00:29 | Day surgery (SDC) | payer OTHER, SELFPAY ==
--- OUTSIDE RECORDS SUMMARY | 1999-10-01 03:30 | XMS_ITS | Continuity of Care Document ---
Author Organization [facility] Address [address] [place] [address] [place] [address] Phone Care Team Providers Care Biology Teacher Name Role Phone Unavailable Unavailable Unavailable Advance Directives Directive Yes / No Effective Date File Name No Information Encounters Encounter Description Practice Location Reason(s) For Visit Diagnoses Date Provider Providers Copied on Encounter [facility], [address] [place] [address] [address], [place], [place], [id number], [place] tel:[phone] [facility] [place] No Information Mar-2 1-200 0 No Information Family History Family Member Type Diagnosis Age At Onset No Information Payers Payer name Insurance type Covered green party ID Authoriza tion(s) No Information Social History Type Description Quantity Date Captured Comments Sex Female Smoking Status No Information Chief Complaint And Reason For Visit No Information Reason For Referral Reason For Referral No Information History Of Present Illness Encounter Date Complaint History Of Prese nt Illness No Information Functional Status Date Functional Assessmen t No Information Instructions Date Instruction Additional Infor mation No Information Assessments Type Assessment Date No Information Patient Care Teams Name Effective Dates (start - stop) Status Members No Information
--- OUTSIDE RECORDS SUMMARY | 2024-10-08 04:00 | XMS_ITS ---
Author Organization [facility] Address [address] [place] [id number] Care Team Providers Care Assistant Project Engineer Name Role Phone Migration, Provider Unavailable Unavailable REASON FOR VISIT EMR-Mika Encounters Encounter Location Date Provider Diagnosis [facility] [address] [place], [place] [id number] 10/08/2024 Prov ider Migration Plan Of Treatment No Information Progress Notes * ANEUDY JOHNSON ANNDOB: [birth year] (59 yo Other)Acc No.[id number]:10/08/2024 Patient: ANEUDY HINTON :1965 A ge:59 Y S ex:Unknown Address: [place], [address] Subjective: * Chief Complaints: * E MR-Mika * * Date:
--- OUTSIDE RECORDS SUMMARY | 2024-10-09 04:00 | XMS_ITS ---
Author Organization [facility] Address [address] [place] [id number] Care Team Providers Care Brine Maker Name Role Phone Migration, Provider Unavailable Unavailable REASON FOR VISIT EMR-Mika Encounters Encounter Location Date Provider Diagnosis [facility] [address] [place], [place] [id number] 10/09/2024 Prov ider Migration Plan Of Treatment No Information Progress Notes * ANEUDY JOHNSON ANNDOB: [birth year] (59 yo Other)Acc No.[id number]:10/09/2024 Patient: ANEUDY HINTON :1965 A ge:59 Y S ex:Unknown Address: [place], [address] Subjective: * Chief Complaints: * E MR-Mika * * Date:
[2025-03-27 09:16] VITALS: BMI 41.5
--- OUTSIDE RECORDS SUMMARY | 2025-04-05 00:33 | XMS_ITS | Encounter Summary ---
Author Organization [facility] Address [address] [place] [address] Care Team Providers Care Terra Cotta Roofer Name Role Phone Ángela Laird NP Primary Care Provider [phone] Encounter Details Date Type Department Care Team (Late st Contact Info) Description 06/16/2021 Inside Social Message Enc [facility] Medical Group Family Medicine - [place] [address] [place] [phone] Ángela Laird, ZAHIDA [address] [place] [address] [place] [address] phentermine Social History Tobacco Use Types Packs/Day Years Used Date Smoking Tobacco: Never Smokeless Tobacco: Never Comments:Smoked a bit when i was young around 21 Alcohol Use Standard Drinks/Week Comments Yes 1 (1 standard drink = 0.6 oz pur e alcohol) socially- on occasions only PHQ-2 Answer Date Recorded PHQ-2 Score - If the patient scores above 3, please move on to questions 3-9 0 12/12/2020 Comments No Sex and Gender Information Value Date Recorded Sex Assigned at Female 07/26/2024 8:13 AM DONOR SERVICES COORDINATOR Legal Sex Female 9:07 AM CDT Gender Identity Not on file Sexual Orientation Not on file COVID-19 Exposure Response Date Recorded In the last month, have you been in contact with someone who was confirmed or suspected to have Coronavirus / COVID-19? No / Unsure 06/02/2021 7:12 PM DONOR SERVICES COORDINATOR documented as of this encounter Plan of Treatment Not on file documented as of this encounter Visit Diagnoses Not on filedocumented in this encounter Additional Health Concerns Infection Onset Date Last Indicated Resolved Time COVID-19 Rule Out 07/09/2021 07/09/2021 07/09/2021 11:51 AM DONOR SERVICES COORDINATOR COVID-19 Rule Out 07/09/2021 07/09/2021 07/10/2021 6:53 PM DONOR SERVICES COORDINATOR COVID-19 Rule Out 10/29/2022 10/29/2022 10/29/2022 10:01 AM CDT COVID-19 Rule Out 10/29/2022 10/29/2022 10/30/2022 2:51 PM CDT COVID-19 Rule Out 06/18/2023 06/18/2023 06/18/2023 11:31 AM DONOR SERVICES COORDINATOR Assessment Noted Time PHQ-9 Depression Total Score: 4 12/13/19 10:34 AM CDT documented as of this encounter Care Teams Terra Cotta Roofer Relationship Specialty Start Date End Date Ángela Laird NP [address] [place] [address] PCP - General NURSE PRACTITIONER 12/06/20 documented as of this encounter
--- OUTSIDE RECORDS SUMMARY | 2025-04-05 00:33 | XMS_ITS | Encounter Summary ---
Author Organization [facility] Address [address] [place] [address] Care Team Providers Care Acoustic Warfare Analyst Name Role Phone Ángela Laird NP Primary Care Provider [phone] Encounter Details Date Type Department Care Team (Late st Contact Info) Description 04/01/2023 InGaugeIt Message Enc [facility] Medical [facility] Family Medicine - [place] [address] [place] [address] [facility] Provider test results Social History Tobacco Use Types Packs/Day Years Used Date Smoking Tobacco: Never Passive Smoke Exposure: Never Smokeless Tobacco: Never Comments:Smoked a bit when i was young around 21 Alcohol Use Standard Drinks/Week Comments Yes 8 (1 standard drink = 0.6 oz pur e alcohol) Per month PHQ-2 Answer Date Recorded Patient Health Questionnaire-2 Score 2 08/20/2022 Comments No Sex and Gender Information Value Date Recorded Sex Assigned at Female 07/26/2024 8:13 AM CLAIM REP Legal Sex Female 9:07 AM CDT Gender Identity Not on file Sexual Orientation Not on file documented as of this encounter Plan of Treatment Not on file documented as of this encounter Visit Diagnoses Not on filedocumented in this encounter Additional Health Concerns Infection Onset Date Last Indicated Resolved Time COVID-19 Rule Out 06/18/2023 06/18/2023 06/18/2023 11:31 AM CLAIM REP Assessment Noted Time PHQ-9 Depression Total Score: 8 08/20/19 11:31 AM CLAIM REP documented as of this encounter Care Teams Acoustic Warfare Analyst Relationship Specialty Start Date End Date Ángela Laird NP [address] [place] [address] [place] [address] PCP - General NURSE PRACTITIONER 12/06/20 documented as of this encounter
--- OUTSIDE RECORDS SUMMARY | 2025-04-05 00:33 | XMS_ITS | Clinical Summary ---
Author Organization [facility] Address [address] [place] [place] [address] Care Team Providers Care Repair Manager Name Role Phone Ángela Laird APRN-[facility] Primary Care Provi yeyo Source Comments [facility]non-owned Affiliates and Associated Physician Practices is amultiple site organization consisting of ambulatory clinics and hospital sitesin [place], [place], [place] and [place]. This disclosure is being madepursuant to the Care Everywhere program and may not contain all information available regarding this patient. Last updated 18.[facility] Active Problems Problem Noted Date Diagnosed Date [...] COLON CA SCREENING 1966 LIPID TESTING 1966 HIV SCREENING 1981 DTAP/TDAP/TD VACCINES (1 - Tdap) 1985 HEPATITIS B VACCINE (1 of 3 - 19+ 3-dose series) 1985 PAP SMEAR 09/28/1987 PNEUMOCOCCAL VACCINE 50+ (1 of 1 - PCV) 2016 ZOSTER VACCINE (1 of 2) 2016 DEPRESSION SCREENING 07/13/2024 MAMMOGRAM 12/25/2024 12/25/2022, 06/0 03/2022, 10/29/2020, Additional history exists COVID-19 VACCINE (2 - 2024- season) 2025 08/11/2021 INFLUENZA VACCINE (#1) 2025 04/25/2020 HEPATITIS C SCREENING Completed 12/05/2022 [...] patient's age to complete this topic Insurance [facility] Care Teams Repair Manager Relationship Specialty Start Date End Date Ángela Laird APRN-[facility] [address], [address] [place] [address] PCP - General Nurse Practitioner 11/13/23
--- OUTSIDE RECORDS SUMMARY | 2025-04-05 00:33 | XMS_ITS | Encounter Summary ---
Author Organization [facility] Address [address] [place] [address] Care Team Providers Care Social Media Marketing Analyst Name Role Phone Ángela Laird NP Primary Care Provider [phone] Encounter Details Date Type Department Care Team (Late st Contact Info) Description 04/24/2022 [employer] Message Enc [facility] Medical Group Family Medicine - [place] [address] [facility] [address] [place], [place] [address], [place] [address] Ángela Laird, ZAHIDA [address] [place] [address] follow up on blood pressure Social History Tobacco Use Types Packs/Day Years Used Date Smoking Tobacco: Never Smokeless Tobacco: Never Comments:Smoked a bit when i was young around 21 Alcohol Use Standard Drinks/Week Comments Yes 1 (1 standard drink = 0.6 oz pur e alcohol) socially- on occasions only PHQ-2 Answer Date Recorded PHQ-2 Score - If the patient scores above 3, please move on to questions 3-9 6 02/07/2022 Comments No Sex and Gender Information Value Date Recorded Sex Assigned at Female 07/26/2024 8:13 AM PHARMACIST HELPER Legal Sex Female 9:07 AM CDT Gender Identity Not on file Sexual Orientation Not on file documented as of this encounter Plan of Treatment Not on file documented as of this encounter Visit Diagnoses Not on filedocumented in this encounter Additional Health Concerns Infection Onset Date Last Indicated Resolved Time COVID-19 Rule Out 10/29/2022 10/29/2022 10/29/2022 10:01 AM CDT COVID-19 Rule Out 10/29/2022 10/29/2022 10/30/2022 2:51 PM CDT COVID-19 Rule Out 06/18/2023 06/18/2023 06/18/2023 11:31 AM PHARMACIST HELPER Assessment Noted Time PHQ-9 Depression Total Score: 22 022 8:50 AM CDT documented as of this encounter Care Teams Social Media Marketing Analyst Relationship Specialty Start Date End Date Ángela Laird NP [address] [place] [address] [place] [address] PCP - General NURSE PRACTITIONER 12/06/20 documented as of this encounter
--- OUTSIDE RECORDS SUMMARY | 2025-04-05 00:33 | XMS_ITS | Encounter Summary ---
Author Organization [facility] - [facility] Address [address] [place] [address] Care Team Providers Care Mental Health Program Specialist Name Role Phone Ángela Laird NP Primary Care Provider [phone] Encounter Details Date Type Department Care Team (Late st Contact Info) Description 03/24/2022 [employer] Message [facility] Patient Accounts [address] [place] [address] [facility] Monthly Credit Card Payments Social History Tobacco Use Types Packs/Day Years [...] Sex Assigned at Female 07/26/2024 8:13 AM MAPLE PRODUCTS SUPERVISOR Legal Sex Female 9:07 AM CDT Gender Identity Not on file Sexual Orientation Not on file COVID-19 Exposure Response Date Recorded In the last 10 days, have yo u been in contact with someone who was confirmed or suspected to have Coronavirus/COVID-19? No / Unsure 03/05/2022 7:46 AM CDT documented as of this encounter Plan of Treatment Not on file documented as of this encounter Visit Diagnoses Not on filedocumented in this encounter Additional Health Concerns Infection Onset Date Last Indicated Resolved Time COVID-19 Rule Out 10/29/2022 10/29/2022 10/29/2022 10:01 AM CDT COVID-19 Rule Out 10/29/2022 10/29/2022 10/30/2022 2:51 PM CDT COVID-19 Rule Out 06/18/2023 06/18/2023 06/18/2023 11:31 AM MAPLE PRODUCTS SUPERVISOR Assessment Noted Time PHQ-9 Depression Total Score: 22 022 8:50 AM CDT documented as of this encounter Care Teams Mental Health Program Specialist Relationship Specialty Start Date End Date Ángela Laird NP [address] [place] [address] PCP - General NURSE PRACTITIONER 12/06/20 documented as of this encounter
--- OUTSIDE RECORDS SUMMARY | 2025-04-05 00:33 | XMS_ITS | Clinical Summary ---
Author Organization [facility] Address Formerly [facility], [id number] [place] [address] Care Team Providers Care Potato Spotter Name Role Phone Ángela Laird NP Primary Care Provider [phone] [phone] Allergies No known active allergies Medications Blood Glucose Monitoring Suppl (ONE TOUCH ULTRA 2) w/Device KitIndications:D iabetes mellitus ([facility]) 1 Device by Does not apply route 2 (two) times daily. 1 kit 2 Active Lancets (ONETOUCH ULTRASOFT) lancetsIndicatio ns:Diabetes mellitus ([facility]) 1 each by Other route 2 (two) times daily as needed. Use as instructed 100 each 3 2 Active EPINEPHrine (EPIPEN 2-STEVEN) 0.3 MG/0.3ML injectionIndicat ions:Allergic reaction to drug, initial encounter Inject 0.3 mLs (0.3 mg total) into the muscle as needed for Anaphylaxis. 1 each 3 Active Multiple Vitamins-Mineral s (CENTRUM ADULT OR) Take by mouth daily. Active VITAMIN C, CALCIUM ASCORBATE, OR Take by mouth daily. Active fish oil (OMEGA-3 FATTY ACID) 1000 MG Cap capsule Take 1 capsule (1,000 mg total) by mouth daily. Active ONETOUCH ULTRA test stripIndications :Diabetes mellitus ([facility]) TEST THREE TIMES DAILY TO FOUR TIMES DAILY DIRECTED 300 strip 3 4 Active vitamin D3 (CHOLECALCIFEROL ) 1.25 mg capsuleIndicatio ns:Vitamin D deficiency Take 1 capsule (50,000 Units total) by mouth once a week. 8 capsule 5 Active sertraline (ZOLOFT) 50 MG tabletIndication s:Anxiety Take 1 tablet (50 mg total) by mouth daily. 90 tablet 1 5 Active omeprazole (PRILOSEC) 20 MG capsuleIndicatio ns:Gastroesophag eal reflux disease, unspecified whether esophagitis present Take 1 capsule (20 mg total) by mouth daily. 90 capsule 1 5 Active tirzepatide (ZEPBOUND) 10 MG/0.5ML injectionIndicat ions:Weight Loss Inject 10 mg into the skin once a week. Indications: Weight Loss 2 mL 3 5 Active Active Problems Problem Noted Date Diagnosed Date Pure hypercholesterolemia 07/25/2024 Overview (07/25/2024): LDL [address] order to check lipid panel for this year. Assessment & Plan (07/25/2024 8:56 AM ELECTROPHYSIOLOGY SCIENTIST): The 10-year ASCVD risk score (Fabio MCGARRY, et al., 2019) is: 5.1% Values used to calculate the score: Age: 58 years Sex: Female Is Non- : No Diabetic: Yes Tobacco smoker: No Systolic Blood Pressure: 132 mmHg Is BP treated: No HDL Cholesterol: 68 mg/dL Total Cholesterol: 251 mg/dL Last years risk factor. Will check lipid panel for this year. Encourage following a healthy well balance diet. Limit saturated and trans fats. Encourage to get plenty of lean meats in your diet and grilled fish. Recommend eating at least 2 servings of fruits and vegetables per day. Encourage to limit sugar, processed foods, and large amount of carbohydrates. Moderate obstructive sleep apnea 07/25/2024 Overview (07/25/2024): On CPAP for moderate BUDDY but does not tolerate very well. Follows off throughout the night. She feels that she has lost around 38 pounds with use of Zepbound her sleep apnea symptoms have improved. Patient's sleep study was done July 2023. Assessment & Plan (07/25/2024 8:49 AM ELECTROPHYSIOLOGY SCIENTIST): Inform patient unsure if insurance will cover another sleep study since it has only been a year. Patient however still has some fatigue she reports during the day. Since patient had moderate BUDDY I would encourage discussing with company about a new CPAP appliance, new straps and/or maybe needed etc. to help keep her CPAP stay on throughout the night. With continual weight loss happy to discuss obtaining a follow-up sleep study but I feel it is still too soon at this time. Patient is still obese. Vitamin D deficiency 07/25/2024 Overview (07/25/2024): Hx of low vitamin D. Not on replacement at this current time. Assessment & Plan (07/25/2024 9:02 AM ELECTROPHYSIOLOGY SCIENTIST): Will recheck level and provide appropriate dosing once back. Discussed with patient importance of vitamin D Ganglion cyst of finger of left hand 08/20/2022 Thrombophlebitis of right leg ([facility]) 01/31/2021 Gastroesophageal reflux dise ase, unspecified whether esophagitis present 12/12/2020 Overview (07/25/2024): Chronic condition. Is needing a new script for omeprazole 20mg. She has a 40mg tablet sent in by GI but she only feel she needs 20mg. Pt wonders about termite renewal inspector affects, bone loss with use. Assessment & Plan (07/25/2024 8:58 AM ELECTROPHYSIOLOGY SCIENTIST): GERD education discussed. Went over termite renewal inspector affects with use. Avoid eating 2- 3 hours prior to bedtime. Sleep with HOB up to prevent heartburn. Avoid foods/drinks that trigger reflex like spicy/acidic foods, soda, coffee. Encourage weight loss as well. Discussed trailing off PPI after taking for 6-8 weeks and reassess symptoms. If improved may only need as needed tums or Famotide 20mg once or twice day. Prediabetes 12/12/2020 Overview (07/25/2024): Last A1C 6.3 in October. Pt is taking Zepbound. Assessment & Plan (07/25/2024 8:55 AM ELECTROPHYSIOLOGY SCIENTIST): A1C 5.5. Improved with use of Zebpound.Pt wants to increase dose of Zepbound. Encourage following a healthy lifestyle as well. Class 3 severe obesity with body mass index (BMI) of 40.0 to 44.9 in adult 12/12/2020 Overview (07/25/2024): Has been taking Zepbound for weight loss. She is currently on 10 mg once weekly and she is wanting to increase her dose. Around the holidays she has been eating more sweets than usual she is having a lot of food noise with sweets. She been working on trying to eat better. Patient states has lost around 38 pounds with use of Zepbound. Denies any side effects with use. Assessment & Plan (07/25/2024 8:52 AM ELECTROPHYSIOLOGY SCIENTIST): Will increase Zepbound to 12.5mg once weekly Encourage to also follow diet and lifestyle changes. Anxiety and depression 12/12/2020 Overview (07/25/2024): Chronic condition. Doing well with sertraline 50 mg daily. Does not want to make any med changes at this time. Denies any SI/HI. Assessment & Plan (07/25/2024 8:50 AM ELECTROPHYSIOLOGY SCIENTIST): Chronic condition. Controlled. No med changes need at this time. Encourage stress relieving activity Family history of malignant neoplasm of breast 0 11/26/2013 Overview (01/31/2021): Family history of breast cancer History of reduction mammoplasty 11/17/2012 Overview (01/31/2021): Hx of breast reduction, elective Resolved Problems Problem Noted Date Diagnosed Date Resolved Date Essential hypertension 07/25/202407/25 Strain of lumbar region, initial encounter 08/20/2022 07/25/2024 Anxiety 06/24/2022 07/25/2024 Malaise and fatigue 01/31/2021 07/25/19 25 Rhinitis 01/31/2021 07/25/2024 Right upper quadrant pain 12/12/2020 At risk for sleep apnea 12/12/202007/13 Diabetes mellitus ([facility]) 11/26/2013 02/06/2022 Overview (01/31/2021): DM (diabetes mellitus) Encounters Date Type Department Care Team Description 01/26/2025 Scan [employer] [facility] INFO SR[facility]CS Scanned, Doc Med Group 01/26/2025 Telephone [facility] [address] [facility] [address] [place] [address] Ángela Laird NP Medication 01/26/2025 [employer] Message [facility] Patient Accounts [address] [place], [place] [id number] [facility] Provider Auto Payment Declined 01/24/2025 Telephone [facility] [address] [facility] [address] [place], [place] [address] Ángela Laird NP Problem (See telephone note) from Last 3 Months Immunizations Immunization Administration Dates Next Due Flublok (Quadrivalent) 04/25/2020 PFIZER COVID-19 (LAI CAP), MRNA, LNP-S, PF, 30 MCG/0.3 ML LI-SUCROSE, IM 08/11/2021 Family History Medical History Relation Comments Cancer Brother 1 Prostate cancer 50 Prostate Cancer Brother 1 Cancer Brother 2 Prostate cancer 75 CHF Father Cancer Father Prostate cancer Heart Disease Father A-fib, CHF. When he was older Breast Cancer Mother Cancer Mother Breast cancer Relation Status Comments Brother 1 Brother 2 Father Mother Social History Tobacco Use Types Packs/Day Years Used Date Smoking Tobacco: Never Passive Smoke Exposure: Never Smokeless Tobacco: Never Tobacco Cessation:Counseling Given: No Comments:Smoked a bit when i was young around 21 Alcohol Use Standard Drinks/Week Comments Yes 8 (1 standard drink = 0.6 oz pur e alcohol) Per month PHQ-2 Answer Date Recorded Patient Health Questionnaire-2 Score 0 07/25/2024 Comments No Sex and Gender Information Value Date Recorded Sex Assigned at Female 07/26/2024 8:13 AM ELECTROPHYSIOLOGY SCIENTIST Legal Sex Female 9:07 AM CDT Gender Identity Not on file Sexual Orientation Not on file Last Filed Vital Signs Vital Sign Reading Time Taken Comments Blood Pressure 132/74 07/25/2024 8:11 AM ELECTROPHYSIOLOGY SCIENTIST Pulse 86 07/25/2024 8:11 AM ELECTROPHYSIOLOGY SCIENTIST Temperature 36.2 C (97.1 F) 07/25/2024 8:11 AM ELECTROPHYSIOLOGY SCIENTIST Respiratory Rate 18 07/25/2024 8:11 AM ELECTROPHYSIOLOGY SCIENTIST Oxygen Saturation 97% 07/25/2024 8:11 AM ELECTROPHYSIOLOGY SCIENTIST Inhaled Oxygen Concentration - - Weight 126.6 kg (279 lb) 07/25/2024 8:11 AM ELECTROPHYSIOLOGY SCIENTIST Height 170.2 cm (5' 7) 07/25/2024 8:11 AM ELECTROPHYSIOLOGY SCIENTIST Body Mass Index 43.7 07/25/2024 8:11 AM ELECTROPHYSIOLOGY SCIENTIST Plan of Treatment Health Maintenance Due Date Last Done Comments Cervical Cancer Screening Pap Smear (Age 30 to 64) Every 3 Years 1966 Kidney Health Evaluation 1966 Diabetes: Retinopathy Eye Exam 1984 DTaP, Tdap and Td Vaccines (1 - Tdap) 1985 Hepatitis B Vaccines (1 of 3 - 19+ 3-dose series) 1985 Pneumococcal Vaccine: 50+ Years (1 of 2 - PCV) 1985 Zoster Vaccines (1 of 2) 2016 Mammogram Screening 12/25/2024 12/25/2022, 12/19/2021, 10/29/2020, Additional history exists Hemoglobin A1C 01/22/2025 07/25/2024, 10/11, 07/23/2023, Additional history exists COVID-19 Vaccine ( season) 2025 08/11/2021 Annual Physical 07/25/2025 07/25/2024, 07/13, 03/03/2022, Additional history exists Lipid Panel 08/03/2025 08/03/2024, 07/13, 12/05/2022, Additional history exists Cervical Cancer Screening Pap with HPV Testing (Age 30 to 64) Every 5 Years 10/25/2025 10/25/2020, 10/25/2020 Cervical Cancer Screening with HPV 10/25/2025 Colorectal Cancer Screening Colonoscopy (10 Years) 08/20/2026 08/20/2021, 02/27/2011 Hepatitis C Completed 12/05/2022, 01/18/2021 PHQ-2 (Physician Native) Completed 07/25/2024 Meningococcal B Vaccine Aged Out No l onger eligible based on patient's age to complete this topic Meningococcal Vaccine Aged Out No nabeel puja eligible based on patient's age to complete this topic RSV Immunizations Under 20 Months Aged Out No longer eligible based on patient's age to complete this topic Procedures Procedure Name Priority Date/Time Associated Diagnosis Comments LIPID PANEL Routine 08/03/2024 12:25 PM ELECTROPHYSIOLOGY SCIENTIST Pure hypercholesterolemia HEMOGLOBIN, GLYCOSYLATED Routine 07/25/2024 Prediabetes MAMMOGRAM GENERIC (SCAN ORDER) 12/25/2022 HEPATITIS C ANTIBODY Routine 12/05/2022 12:24 PM CDT Need for hepatitis C screening test COLONOSCOPY GENERIC (SCAN ORDER) 08/20/2021 OUTSIDE CYTOPATH CERV/VAG INTERPRET (PAP) 10/25/2020 from Last 3 Months or Most Recently Relevant to Health Maintenance Results * (ABNORMAL) LIPID PANEL (08/03/2024 12:25 PM ELECTROPHYSIOLOGY SCIENTIST) CHOLESTEROL 210(H) 100 - 199 mg/dL [facility] 1 TRIGLYCERIDES 122 0 - 149 mg/dL [facility] HDL 56 >39 mg/dL [facility] 1 VLDL CALCULATION 22 5 - 40 mg/dL [facility] 1 LDL (CALCULATED) 132(H) 0 - 99 mg/dL [facility] 1 08/03/2024 12:2 5 PM ELECTROPHYSIOLOGY SCIENTIST 08/03/2024 Narrative [facility] - 08/04/2024 8:08 AM ELECTROPHYSIOLOGY SCIENTIST Performed at: [facility] [id number] Sound Editor: Javier Redmond PhD, Phone: [phone] Ángelablank Laird [facility] Final Res ult [facility] [address] [place] [address] [facility] 1 * A1C (BACK OFFICE) (07/25/2024) HGB A1C 5.5 % [address], [place] 07/25/2024 Ángela Laird [facility] Final Res ult [address] [place] [address] [place] [address], [place] [phone] * MAMMOGRAM GENERIC (12/25/2022) Anatomical Region Laterality Modality Other 12/25/2022 Doc [facility] Scanned SCANNING Final Resu lt * HEPATITIS C ANTIBODY (12/05/2022 12:24 PM CDT) HEPATITIS C AB NON-REACTI VE NON-REACT CLARICE 12/05/2022 9:55 PM CDT [facility] Comment: ANTIBODIES TO HCV NOT DETECTED. DOES NOT EXCLUDE THE POSSIBILITY OF EXPOSURE TO HCV. 12/05/2022 12:2 4 PM CDT Ángela Laird [facility] Final Res ult [facility] [address] [place] [address], [place] [phone] [id number] * COLONOSCOPY GENERIC (08/20/2021) 08/20/2021 Narrative 08/20/2021 Ordered by an unspecified provider. us Documents Scanned SCANNING Final Result * OUTSIDE CYTOPATH VAG/CERV PAP WITH HPV (10/25/2020) 10/25/2020 Narrative 10/25/2020 Ordered by an unspecified provider. us Documents Scanned SCANNING Final Result from Last 3 Months or Most Recently Relevant to Health Maintenance Insurance R Care Teams Potato Spotter Relationship Specialty Start Date End Date Ángela Laird NP [address] [place] [address] PCP - General NURSE PRACTITIONER 12/06/20
--- OUTSIDE RECORDS SUMMARY | 2025-04-05 00:33 | XMS_ITS | Encounter Summary ---
Author Organization [facility] Address [address] [place] [address] Care Team Providers Care Machinist Instructor Name Role Phone Ángela Laird NP Primary Care Provider [phone] Encounter Details Date Type Department Care Team (Late st Contact Info) Description 07/18/2021 [employer] Message Enc [facility] Medical Group Family Medicine - [place] [address] [facility] [address] [place], [place] [address], [place] [id number] Ángela Laird, ZAHIDA [address] [place] [address] [place], [place] [address] monoclonal antibody treatment at [facility] Social History Tobacco Use Types Packs/Day Years [...] Sex Assigned at Female 07/26/2024 8:13 AM REFLOW OPERATOR Legal Sex Female 9:07 AM CDT Gender Identity Not on file Sexual Orientation Not on file COVID-19 Exposure Response Date Recorded In the last month, have you been in contact with someone who was confirmed or suspected to have Coronavirus / COVID-19? Yes 07/18/2021 11:06 AM REFLOW OPERATOR documented as of this encounter Plan of Treatment Not on file documented as of this encounter Visit Diagnoses Not on filedocumented in this encounter Additional Health Concerns Infection Onset Date Last Indicated Resolved Time COVID-19 Rule Out 10/29/2022 10/29/2022 10/29/2022 10:01 AM CDT COVID-19 Rule Out 10/29/2022 10/29/2022 10/30/2022 2:51 PM CDT COVID-19 Rule Out 06/18/2023 06/18/2023 06/18/2023 11:31 AM REFLOW OPERATOR Assessment Noted Time PHQ-9 Depression Total Score: 4 12/13/19 10:34 AM CDT documented as of this encounter Care Teams Machinist Instructor Relationship Specialty Start Date End Date Ángela Laird NP [address] [place] [address] PCP - General NURSE PRACTITIONER 12/06/20 documented as of this encounter
--- OUTSIDE RECORDS SUMMARY | 2025-04-05 00:33 | XMS_ITS | Encounter Summary ---
Author Organization [facility] Address [address] [place] [address] Care Team Providers Care Ui Developer With Angular Js Name Role Phone Ángela Laird NP Primary Care Provider [phone] Encounter Details Date Type Department Care Team (Late st Contact Info) Description 08/18/2022 [employer] Message Enc [facility] Medical Group Family Medicine - [place] [address] [facility] [address] [place] [id number] Ángela Laird, ZAHIDA [address] [place] [address] [place] [address] Follow up on appointment Social History Tobacco Use Types Packs/Day Years Used Date Smoking Tobacco: Never Smokeless Tobacco: Never Comments:Smoked a bit when i was young around 21 Alcohol Use Standard Drinks/Week Comments Yes 1 (1 standard drink = 0.6 oz pur e alcohol) socially- on occasions only PHQ-2 Answer Date Recorded Patient Health Questionnaire-2 Score 2 08/20/2022 Comments No Sex and Gender Information Value Date Recorded Sex Assigned at Female 07/26/2024 8:13 AM GLOBAL MOBILITY SPECIALIST Legal Sex Female 9:07 AM CDT Gender Identity Not on file Sexual Orientation Not on file COVID-19 Exposure Response Date Recorded In the last 10 days, have yo u been in contact with someone who was confirmed or suspected to have Coronavirus/COVID-19? No / Unsure 08/20/2022 11:20 AM GLOBAL MOBILITY SPECIALIST documented as of this encounter Functional Status * Over the past 2 weeks, how often have you been bothered by any of the following problems? Question Answer Date of Assessment Author Status Little interest or pleasure in doing things Several days 08/20/2022 11:31 AM Kalani Barrios MA Act jerry Feeling down, depressed, or hopeless Several days 08/20/2022 11:31 AM Ashely Barrios MA Active Patient Health Questionnaire-2 Score 2 08/20/2022 11:31 AM Kalani Barrios MA Active * Question Answer Date of Assessment Author Status Trouble falling or staying asleep, or sleeping too much Not at all 08/20/2022 11:31 AM Kalani Barrios MA Active Feeling tired or having little energy More than half the days 08/20/2022 11:31 AM Kalani Barrios MA Active Poor appetite or overeating More than half the days 08/20/2022 11:31 AM Kalani Barrios MA Active Feeling bad about yourself - or that you are a failure or have let yourself or your family down Several days 08/20/2022 11:31 AM Kalani Barrios MA Active Trouble concentrating on things, such as reading the newspaper or watching television Several days 08/20/2022 11:31 AM Kalani Barrios MA Active Moving or speaking so slowly that other people could have noticed? Or the opposite - being so fidgety or restless that you have been moving around a lot more than usual. Not at all 08/20/2022 11:31 AM Kalani Barrios MA Active Thoughts that you would be better off or hurting yourself in some way Not at all 08/20/2022 11:31 AM Kalani Barrios MA Active Patient Health Questionnaire-9 Score 8 08/20/2022 11:31 AM Kalani Barrios MA Active * If you checked off any problems on this questionnaire so far, Question Answer Date of Assessment Author Status How difficult have these problems made it for you to do your work, take care of things at home, or get along with other people? Somewhat difficult 08/20/2022 11:31 AM Kalani Barrios MA Active documented as of this encounter Plan of Treatment Not on file documented as of this encounter Visit Diagnoses Not on filedocumented in this encounter Additional Health Concerns Infection Onset Date Last Indicated Resolved Time COVID-19 Rule Out 10/29/2022 10/29/2022 10/29/2022 10:01 AM CDT COVID-19 Rule Out 10/29/2022 10/29/2022 10/30/2022 2:51 PM CDT COVID-19 Rule Out 06/18/2023 06/18/2023 06/18/2023 11:31 AM GLOBAL MOBILITY SPECIALIST Assessment Noted Time PHQ-9 Depression Total Score: 22 022 8:50 AM CDT documented as of this encounter Care Teams Ui Developer With Angular Js Relationship Specialty Start Date End Date Ángela Laird NP [address] [place] [address] PCP - General NURSE PRACTITIONER 12/06/20 documented as of this encounter
--- OUTSIDE RECORDS SUMMARY | 2025-04-05 00:33 | XMS_ITS | Encounter Summary ---
Author Organization [facility] Address [address] [place] [address] Care Team Providers Care Steam Hammer Operator Name Role Phone Ángela Laird NP Primary Care Provider +1 -[phone] Encounter Details Date Type Department Care Team (Late st Contact Info) Description 09/16/2022 bSafet Message Enc [facility] Medical Group Family Medicine - [place] [address] [facility] [address] [place] [address] Ángela Laird, ZAHIDA [address] [place] [address] Lorazepam .5mg Social History Tobacco Use Types Packs/Day Years [...] Sex Assigned at Female 07/26/2024 8:13 AM COATER BRAKE LININGS Legal Sex Female 9:07 AM CDT Gender Identity Not on file Sexual Orientation Not on file COVID-19 Exposure Response Date Recorded In the last 10 days, have yo u been in contact with someone who was confirmed or suspected to have Coronavirus/COVID-19? No / Unsure 08/20/2022 11:20 AM COATER BRAKE LININGS documented as of this encounter Plan of Treatment Not on file documented as of this encounter Visit Diagnoses Not on filedocumented in this encounter Additional Health Concerns Infection Onset Date Last Indicated Resolved Time COVID-19 Rule Out 10/29/2022 10/29/2022 10/29/2022 10:01 AM CDT COVID-19 Rule Out 10/29/2022 10/29/2022 10/30/2022 2:51 PM CDT COVID-19 Rule Out 06/18/2023 06/18/2023 06/18/2023 11:31 AM COATER BRAKE LININGS Assessment Noted Time PHQ-9 Depression Total Score: 8 08/20/19 11:31 AM COATER BRAKE LININGS documented as of this encounter Care Teams Steam Hammer Operator Relationship Specialty Start Date End Date Ángela Laird NP [address] [place] [address] PCP - General NURSE PRACTITIONER 12/06/20 documented as of this encounter
--- OUTSIDE RECORDS SUMMARY | 2025-04-05 00:33 | XMS_ITS | Encounter Summary ---
Author Organization [facility] - [facility] Address [address] [place] [address] Care Team Providers Care Hand Tube Bender Name Role Phone Ángela Laird NP Primary Care Provider [phone] [phone] Encounter Details Date Type Department Care Team (Late st Contact Info) Description 01/26/2025 [employer] Message [facility] Patient Accounts [address] [place], [place] [id number] [facility] Auto Payment Declined Social History Tobacco Use Types Packs/Day Years [...] Sex Assigned at Female 07/26/2024 8:13 AM SPOKE MAKER Legal Sex Female 9:07 AM CDT Gender Identity Not on file Sexual Orientation Not on file documented as of this encounter Plan of Treatment Not on file documented as of this encounter Visit Diagnoses Not on filedocumented in this encounter Additional Health Concerns Assessment Noted Time PHQ-9 Depression Total Score: 5 07/23/19 24 3:14 PM SPOKE MAKER documented as of this encounter Care Teams Hand Tube Bender Relationship Specialty Start Date End Date Ángela Laird NP [address] [place] [address] PCP - General NURSE PRACTITIONER 12/06/20 documented as of this encounter
--- OUTSIDE RECORDS SUMMARY | 2025-04-05 00:33 | XMS_ITS | Encounter Summary ---
Author Organization [facility] Address [address] [place] [address] Care Team Providers Care Fountain Clerk Name Role Phone Ángela Laird NP Primary Care Provider [phone] [phone] Encounter Details Date Type Department Care Team (Late st Contact Info) Description 05/26/2021 [employer] Message Enc [facility] Medical Group Family Medicine - [place] [address] [facility] [address] [place] [address] [phone] Ángela Laird, ZAHIDA [address] [place] [address] [place] [address] Urine test Social History Tobacco Use Types Packs/Day Years Used Date Smoking Tobacco: Never Smokeless Tobacco: Never Alcohol Use Standard Drinks/Week Comments Yes 0 (1 standard drink = 0.6 oz pur e alcohol) socially- on occasions only PHQ-2 Answer Date Recorded PHQ-2 Score - If the patient scores above 3, please move on to questions 3-9 0 12/12/2020 Comments No Sex and Gender Information Value Date Recorded Sex Assigned at Female 07/26/2024 8:13 AM DEAF INTERPRETER Legal Sex Female 9:07 AM CDT Gender Identity Not on file Sexual Orientation Not on file COVID-19 Exposure Response Date Recorded In the last month, have you been in contact with someone who was confirmed or suspected to have Coronavirus / COVID-19? No / Unsure 05/22/2021 4:16 PM DEAF INTERPRETER documented as of this encounter Plan of Treatment Not on file documented as of this encounter Visit Diagnoses Not on filedocumented in this encounter Additional Health Concerns Infection Onset Date Last Indicated Resolved Time COVID-19 Rule Out 07/09/2021 07/09/2021 07/09/2021 11:51 AM DEAF INTERPRETER COVID-19 Rule Out 07/09/2021 07/09/2021 07/10/2021 6:53 PM DEAF INTERPRETER COVID-19 Rule Out 10/29/2022 10/29/2022 10/29/2022 10:01 AM CDT COVID-19 Rule Out 10/29/2022 10/29/2022 10/30/2022 2:51 PM CDT COVID-19 Rule Out 06/18/2023 06/18/2023 06/18/2023 11:31 AM DEAF INTERPRETER Assessment Noted Time PHQ-9 Depression Total Score: 4 12/13/19 10:34 AM CDT documented as of this encounter Care Teams Fountain Clerk Relationship Specialty Start Date End Date Ángela Laird NP [address] [place] [address] PCP - General NURSE PRACTITIONER 12/06/20 documented as of this encounter
--- OUTSIDE RECORDS SUMMARY | 2025-04-05 00:33 | XMS_ITS | Encounter Summary ---
Author Organization [facility] Address [address] [place] [address] Care Team Providers Care Manager Operations Name Role Phone Ángela Laird NP Primary Care Provider +1 -[phone] Encounter Details Date Type Department Care Team (Late st Contact Info) Description 01/16/2022 [employer] Message Enc [facility] Medical Group Family Medicine - [place] [address] [facility] [address] [place], [place] [address], [place] [phone] Ángela Laird, ZAHIDA [address] [place] [address] [place] [address] 2 small skin tag looking lumps Social History Tobacco Use Types Packs/Day Years [...] Sex Assigned at Female 07/26/2024 8:13 AM FITNESS COORDINATOR Legal Sex Female 9:07 AM CDT [...] Rule Out 06/18/2023 06/18/2023 06/18/2023 11:31 AM FITNESS COORDINATOR Assessment Noted Time PHQ-9 Depression Total Score: 4 12/13/19 10:34 AM CDT documented as of this encounter Care Teams Manager Operations Relationship Specialty Start Date End Date Ángela Laird NP [address] [place] [address] [place] [address] PCP - General NURSE PRACTITIONER 12/06/20 documented as of this encounter
--- OUTSIDE RECORDS SUMMARY | 2025-04-05 00:33 | XMS_ITS | Encounter Summary ---
Author Organization [facility] Address [address] [place] [address] Care Team Providers Care Outdoor Landscape Architect Name Role Phone Ángela Laird NP Primary Care Provider [phone] [phone] Encounter Details Date Type Department Care Team (Late st Contact Info) Description 05/28/2021 [facility] Message Enc [facility] [address] [place] [address] Srikanth Benitez MD [facility]. [facility] [address] [place] [address] 05/23/21 test results Social History Tobacco Use Types [...] Sex Assigned at Female 07/26/2024 8:13 AM COREMAKER Legal Sex Female 9:07 AM CDT Gender Identity Not on file Sexual Orientation Not on file COVID-19 Exposure Response Date Recorded In the last month, have you been in contact with someone who was confirmed or suspected to have Coronavirus / COVID-19? No / Unsure 05/30/2021 1:34 PM COREMAKER documented as of this encounter Progress Notes * Mckenna Box RN - 05/28/2021 3:08 PM CST See below MAKER documented in this encounter Plan of Treatment Not on file documented as of this encounter Visit Diagnoses Not on filedocumented in this encounter Additional Health Concerns Infection Onset Date Last Indicated Resolved Time COVID-19 Rule Out 07/09/2021 07/09/2021 07/09/2021 11:51 AM COREMAKER COVID-19 Rule Out 07/09/2021 07/09/2021 07/10/2021 6:53 PM COREMAKER COVID-19 Rule Out 10/29/2022 10/29/2022 10/29/2022 10:01 AM CDT COVID-19 Rule Out 10/29/2022 10/29/2022 10/30/2022 2:51 PM CDT COVID-19 Rule Out 06/18/2023 06/18/2023 06/18/2023 11:31 AM COREMAKER Assessment Noted Time PHQ-9 Depression Total Score: 4 12/13/19 10:34 AM CDT documented as of this encounter Care Teams Outdoor Landscape Architect Relationship Specialty Start Date End Date Ángela Laird NP [address] [place] [address] PCP - General NURSE PRACTITIONER 12/06/20 documented as of this encounter
--- OUTSIDE RECORDS SUMMARY | 2025-04-05 00:33 | XMS_ITS | Encounter Summary ---
Author Organization [facility] Address [address] [place] [address] Care Team Providers Care Mat Tester Name Role Phone Ángela Laird NP Primary Care Provider [phone] [phone] Encounter Details Date Type Department Care Team (Late st Contact Info) Description 06/16/2022 [employer] Message Enc [facility] Medical Group Family Medicine - [place] [address] [facility] [address] [place], [place] [address], [place] [phone] Ángela Laird, ZAHIDA [address] [place] [address] [place] [address] Feeling sick Social History Tobacco Use Types Packs/Day Years [...] Sex Assigned at Female 07/26/2024 8:13 AM CERTIFIED PATHOLOGY ASSISTANT Legal Sex Female 9:07 AM CDT Gender [...] Rule Out 06/18/2023 06/18/2023 06/18/2023 11:31 AM CERTIFIED PATHOLOGY ASSISTANT Assessment Noted Time PHQ-9 Depression Total Score: 22 022 8:50 AM CDT documented as of this encounter Care Teams Mat Tester Relationship Specialty Start Date End Date Ángela Laird NP [address] [place] [address] [place] [address] PCP - General NURSE PRACTITIONER 12/06/20 documented as of this encounter
--- OUTSIDE RECORDS SUMMARY | 2025-04-05 00:33 | XMS_ITS | Encounter Summary ---
Author Organization [facility] Address [address] [place] [address] Care Team Providers Care Linen Sorter Name Role Phone Ángela Laird NP Primary Care Provider [phone] [phone] Encounter Details Date Type Department Care Team (Late st Contact Info) Description 05/26/2022 [employer]ing Message Enc [facility] Medical Group Family Medicine - [place] [address] [facility] [address] [place] [phone] Ángela Laird, ZAHIDA [address] [place] [address] [place] [address] Sertraline & Buspirone Social History Tobacco Use Types Packs/Day Years [...] Sex Assigned at Female 07/26/2024 8:13 AM REVOLVING FIELD ASSEMBLER Legal Sex Female 9:07 AM CDT Gender Identity Not on file Sexual Orientation Not on file COVID-19 Exposure Response Date Recorded In the last 10 days, have yo u been in contact with someone who was confirmed or suspected to have Coronavirus/COVID-19? No / Unsure 05/07/2022 3:51 PM CDT documented as of this encounter Plan of Treatment Not on file documented as of this encounter Visit Diagnoses Not on filedocumented in this encounter Additional Health Concerns Infection Onset Date Last Indicated Resolved Time COVID-19 Rule Out 10/29/2022 10/29/2022 10/29/2022 10:01 AM CDT COVID-19 Rule Out 10/29/2022 10/29/2022 10/30/2022 2:51 PM CDT COVID-19 Rule Out 06/18/2023 06/18/2023 06/18/2023 11:31 AM REVOLVING FIELD ASSEMBLER Assessment Noted Time PHQ-9 Depression Total Score: 22 022 8:50 AM CDT documented as of this encounter Care Teams Linen Sorter Relationship Specialty Start Date End Date Ángela Laird NP [address] [place] [address] PCP - General NURSE PRACTITIONER 12/06/20 documented as of this encounter
--- OUTSIDE RECORDS SUMMARY | 2025-04-05 00:33 | XMS_ITS | Encounter Summary ---
Author Organization [facility] Address [address] [place] [address] Care Team Providers Care Music Executive Name Role Phone Ángela Laird NP Primary Care Provider [phone] [phone] Encounter Details Date Type Department Care Team (Late st Contact Info) Description 11/20/2021 [employer] Message Enc [facility] Medical Group Family Medicine - [place] [address] [facility] [address] [place], [place] [address], [place] [phone] Ángela Laird, WASHING MACHINE ASSEMBLER [address] [place] [address] [place] [address] Iron, vitamin D, vitamin B12 Social History Tobacco Use Types Packs/Day Years [...] Sex Assigned at Female 07/26/2024 8:13 AM SPEECH THERAPY ASSISTANT Legal Sex Female 9:07 AM CDT Gender Identity Not on file Sexual Orientation Not on file COVID-19 Exposure Response Date Recorded In the last 10 days, have yo u been in contact with someone who was confirmed or suspected to have Coronavirus/COVID-19? No / Unsure 10/22/2021 1:16 PM CDT documented as of this encounter Plan of Treatment Not on file documented as of this encounter Visit Diagnoses Not on filedocumented in this encounter Additional Health Concerns Infection Onset Date Last Indicated Resolved Time COVID-19 Rule Out 10/29/2022 10/29/2022 10/29/2022 10:01 AM CDT COVID-19 Rule Out 10/29/2022 10/29/2022 10/30/2022 2:51 PM CDT COVID-19 Rule Out 06/18/2023 06/18/2023 06/18/2023 11:31 AM SPEECH THERAPY ASSISTANT Assessment Noted Time PHQ-9 Depression Total Score: 4 12/13/19 10:34 AM CDT documented as of this encounter Care Teams Music Executive Relationship Specialty Start Date End Date Ángela Laird NP [address] [place] [address] PCP - General NURSE PRACTITIONER 12/06/20 documented as of this encounter
--- OUTSIDE RECORDS SUMMARY | 2025-04-05 00:33 | XMS_ITS | Encounter Summary ---
Author Organization [facility] Address [address] [place] [address] Care Team Providers Care Manager Transfer Name Role Phone Ángela Laird NP Primary Care Provider +1 [phone] Encounter Details Date Type Department Care Team (Late st Contact Info) Description 12/12/2021 [employer] Message Enc [facility] Medical Group Family Medicine - [place] [address] [facility] [address] [place] [phone] Ángela Laird, ZAHIDA [address] [place] [address] [place] [address] follow up Social History Tobacco Use Types Packs/Day Years [...] Sex Assigned at Female 07/26/2024 8:13 AM PRODUCTION STATISTICAL CLERK Legal Sex Female 9:07 AM CDT Gender Identity Not on file Sexual Orientation Not on file COVID-19 Exposure Response Date Recorded In the last 10 days, have yo u been in contact with someone who was confirmed or suspected to have Coronavirus/COVID-19? No / Unsure 11/25/2021 10:44 AM CDT documented as of this encounter Plan of Treatment Not on file documented as of this encounter Visit Diagnoses Not on filedocumented in this encounter Additional Health Concerns Infection Onset Date Last Indicated Resolved Time COVID-19 Rule Out 10/29/2022 10/29/2022 10/29/2022 10:01 AM CDT COVID-19 Rule Out 10/29/2022 10/29/2022 10/30/2022 2:51 PM CDT COVID-19 Rule Out 06/18/2023 06/18/2023 06/18/2023 11:31 AM PRODUCTION STATISTICAL CLERK Assessment Noted Time PHQ-9 Depression Total Score: 4 12/13/19 10:34 AM CDT documented as of this encounter Care Teams Manager Transfer Relationship Specialty Start Date End Date Ángela Laird NP [address] [place] [address] PCP - General NURSE PRACTITIONER 12/06/20 documented as of this encounter
--- OUTSIDE RECORDS SUMMARY | 2025-04-05 00:34 | XMS_ITS | Encounter Summary ---
Author Organization [facility] Address [address] [place] [address] Care Team Providers Care Heel Coverer Machine Operator Name Role Phone Ángela Laird NP Primary Care Provider [phone] [phone] Encounter Details Date Type Department Care Team (Latest Contact Info) Description 06/11/2024 localbacon Message Enc [facility] Medical Group Family Medicine - [place] [address] [facility] [address] [place] [phone] Ángela Laird, ZAHIDA [address] [place] [address] [place] [address] PA continuation for Tier exception Social History Tobacco Use Types Packs/Day Years Used Date Smoking Tobacco: Never Passive Smoke Exposure: Never Smokeless Tobacco: Never Comments:Smoked a bit when i was young around 21 Alcohol Use Standard Drinks/Week Comments Yes 8 (1 standard drink = 0.6 oz pur e alcohol) Per month PHQ-2 Answer Date Recorded Patient Health Questionnaire-2 Score 1 07/23/2023 Comments No Sex and Gender Information Value Date Recorded Sex Assigned at Female 07/26/2024 8:13 AM ASSAYER Legal Sex Female 9:07 AM CDT Gender Identity Not on file Sexual Orientation Not on file documented as of this encounter Progress Notes * Kalani Brown MA - 06/13/2024 11:16 AM CST Tier exception form was completed and faxed YER documented in this encounter Plan of Treatment Not on file documented as of this encounter Visit Diagnoses Not on filedocumented in this encounter Additional Health Concerns Assessment Noted Time PHQ-9 Depression Total Score: 5 07/23/19 24 3:14 PM ASSAYER documented as of this encounter Care Teams Heel Coverer Machine Operator Relationship Specialty Start Date End Date Ángela Laird NP [address] [place] [address] PCP - General NURSE PRACTITIONER 12/06/20 documented as of this encounter
--- OUTSIDE RECORDS SUMMARY | 2025-04-05 00:34 | XMS_ITS | Patient Health Record ---
Author Organization [facility] Address [address] [facility] [place] [id number] Care Team Providers Care Supervisor Loading Name Role Phone Migration, Provider Unavailable Unavailable Reason For Referral No Information Encounters Encounter Location Date Provider Diagnosis [facility] [address] [place], [place] [id number] 10/08/2024 Prov ider Migration [facility] [address] [place], [place] [id number] 10/09/2024 Prov ider Migration Plan Of Treatment No Information
--- OUTSIDE RECORDS SUMMARY | 2025-04-05 00:34 | XMS_ITS | Clinical Summary ---
Author Organization [facility] Address [address] [place] [address] Care Team Providers Care Certified Phlebotomist Name Role Phone Unavailable Primary Care Provider [...] Cervical Cancer Screening (CCS) 1996 HPV/Cotest 1996 Cologuard 09/28/2011 Colonoscopy 09/28/2011 Colorectal Cancer Screening 09/28/2011 Immunochemical Fecal Occult Blood 09/28/2011 Pneumococcal Immunization (5 0+ years) (1 of 1 - PCV) 2016 Zoster Immunization (1 of 2) 2016 SARS-COV-2 Immunization (3 - season) 2024 09/30/2020, 09/09/2020 Influenza Immunization (#1) 2025 04/25/2020 Respiratory Syncytial Virus (RSV) Immunization (Adult) (1 - 1-dose 75+ series) 2041 Human Papillomavirus (HPV) Immunization Aged Out No longer eligible b ased on patient's age to complete this topic Meningococcal Immunization (ACWY) Aged Out No longer eligible b ased on patient's age to complete this topic Rotavirus Immunization Aged Out No lo nger eligible based on patient's age to complete this topic
--- OUTSIDE RECORDS SUMMARY | 2025-04-05 00:34 | XMS_ITS | Encounter Summary ---
Author Organization [facility] Address [address] [place] [address] Care Team Providers Care Sail Finisher Machine Name Role Phone Ángela Laird NP Primary Care Provider +1 -[phone] Encounter Details Date Type Department Care Team (Late st Contact Info) Description 08/07/2024 [employer] Message Enc [facility] Medical Group Family Medicine - [place] [address] [facility] [address] [place] [phone] Ángela Laird NP [address] [place] [address] [place], [place] [address] Potassium Social History Tobacco Use Types Packs/Day Years [...] Sex Assigned at Female 07/26/2024 8:13 AM PLANER OFFBEARER Legal Sex Female 9:07 AM CDT Gender Identity Not on file Sexual Orientation Not on file documented as of this encounter Plan of Treatment Not on file documented as of this encounter Visit Diagnoses Not on filedocumented in this encounter Additional Health Concerns Assessment Noted Time PHQ-9 Depression Total Score: 5 07/23/19 24 3:14 PM PLANER OFFBEARER documented as of this encounter Care Teams Sail Finisher Machine Relationship Specialty Start Date End Date Ángela Laird NP [address] [place] [address] [place] [address] PCP - General NURSE PRACTITIONER 12/06/20 documented as of this encounter
[2025-04-05 09:52] VITALS: BP 133/86; PULSE 90; RESP 16; TEMP 36.5; O2SAT 97; BMI 41.9
[2025-04-05] MEDS: LACTATED RINGERS 1,000 ML 150 ML IV CONT (09:59)
[2025-04-05] MEDS: SIMETHICONE ORAL SUSPENSION 20 MG/0.3 ML 30 ML BOTTLE 1.8 ML PO (10:00)
--- NOTE | 2025-04-05 10:43 | P.PNAN_ITS ---
Anes - Initial Pre Proc Eval Procedure: Operation Date: 04/05/25 11:00 Proposed Procedures p Esophagogastroduodenoscopy EGD - Santana Tucker MD Date/Time: 04/05/25 10:43 Surgeon: Santana Tucker MD Pre Op Diagnosis: Gastro-esophageal reflux disease without esophagit Patient Data Age: 59 Gender: F Height: 1.7 m Weight: 121.5 kg Last Vital Signs Temp 36.5 C 04/05/25 09:52 Pulse 90 04/05/25 09:52 Resp 16 04/05/25 09:52 BP 133/86 04/05/25 09:52 Pulse Ox 97 04/05/25 09:52 O2 Del Method Room Air 04/05/25 09:52 Allergies Allergy/AdvReac Type Severity Reaction Status Date / Time iodine Allergy Mild Rash Verified 04/05/25 09:50 Home Medications ?Medication ?Instructions ?Recorded ?Confirmed ?Type sertraline 50 mg tablet 50 mg PO DAILY 05/28/2103/14 History Zepbound 10 mg IM WEEKLY 12/11/23 History omeprazole 20 mg capsule,delayed 20 mg PO BID #60 caps 01/26/25 04/05/25 Rx release dicyclomine 10 mg capsule See Rx Instructions .Route 0 01/27/25 04/05/25 Rx .COMPLEX #360 caps sucralfate 1 gram tablet See Rx Instructions .Route 0 01/27/25 04/05/25 Rx .COMPLEX #360 tabs Patient hx anesthesia problems: none Family hx anesthesia problems: none Results Review: All pre-operative results and documents have been reviewed as part of the pre- operative evaluation. [facility] Past Medical History Medical History Left arm swelling Upper extremity pain Hepatic steatosis Colon cancer screening IgG Gliadin antibody positive Nausea GERD (gastroesophageal reflux disease) Epigastric pain Sleep apnea in adult Patellofemoral syndrome Chondromalacia, patella Right knee DJD History of left lateral epicondylitis Seasonal allergies Vision abnormalities Lateral epicondylitis Arthritis Anxiety Diabetes Chronic GERD High cholesterol Chronic headaches Left elbow pain Surgical History Surgical History Hx of breast lump removal benign Family History Family History Mother Family history of malignant neoplasm of breast in first degree relative Father Family history of mental disorder Hypertension Family history of elevated blood lipids Other Arthritis Carcinoma of colon Diabetes mellitus Family history of alcoholism Family history of arthritis Family history of atrial fibrillation Family history of hearing loss Family history of malignant neoplasm of male breast Family history of osteoporosis Family history of pancreatic cancer Heart disease Malignant neoplasm Social History Social History (Updated 04/05/25 @ 10:43 by Joselo Pereira MD) Smoking status: Former smoker Tobacco type: cigarettes Smoking end date: 07/13/94 Additional smoking assessment comments: smoked as a teenager Alcohol intake: current Drinks per week: 1 Alcohol use details: couple times per year Substance use: never Substance use type: does not use Living arrangements: with family Gender identity (if verbalized by the patient): Female Spiritual care concerns: No Anes - Eval Final PreProcedure Day of Procedure 04/05/25 10:43 Patient weight: morbidly obese Heart: regular rate and rhythm Lungs: clear to auscultation Airway: Mallampati scale class II Neurological: alert and oriented Last oral intake: >/= 8 hours ASA classification: III Emergent: no Anesthetic plan: proceed Anesthesia type and monitoring: general GIVS and standard monitoring Results Review: All pre-operative results and documents have been reviewed as part of the pre- operative evaluation. Informed Consent: The patient's anesthetic plan and its attendant risks and benefits were discussed with the patient/family/POA. Questions were solicited and answers provided to the satisfaction of the patient/family/POA.
--- NOTE | 2025-04-05 11:07 | PM.IMHP ---
H&P: HPI History of Present Illness Date/Time: 04/05/25 11:07 Chief Complaint: Dysphagia Narrative: this patient has a longstanding history of heartburn, controlled with omeprazole. However, she has been experiencing intermittent episodes of dysphagia to solids. She is now referred for EGD. There is no weight loss, nausea, vomiting or hematemesis. Review of Systems Review of Systems: All systems reviewed & are unremarkable except as noted in HPI and below PMFSH Past Medical History Medical History Left arm swelling Upper extremity pain Hepatic steatosis Colon cancer screening IgG Gliadin antibody positive Nausea GERD (gastroesophageal reflux disease) Epigastric pain Sleep apnea in adult Patellofemoral syndrome Chondromalacia, patella Right knee DJD History of left lateral epicondylitis Seasonal allergies Vision abnormalities Lateral epicondylitis Arthritis Anxiety Diabetes Chronic GERD High cholesterol Chronic headaches Left elbow pain Surgical History Surgical History Hx of breast lump removal benign Family History Family History Mother Family history of malignant neoplasm of breast in first degree relative Father Family history of mental disorder Hypertension Family history of elevated blood lipids Other Arthritis Carcinoma of colon Diabetes mellitus Family history of alcoholism Family history of arthritis Family history of atrial fibrillation Family history of hearing loss Family history of malignant neoplasm of male breast Family history of osteoporosis Family history of pancreatic cancer Heart disease Malignant neoplasm Social History Social History (Updated 04/05/25 @ 10:43 by Joselo Pereira MD) Smoking status: Former smoker Tobacco type: cigarettes Smoking end date: 07/13/94 Additional smoking assessment comments: smoked as a teenager Alcohol intake: current Drinks per week: 1 Alcohol use details: couple times per year Substance use: never Substance use type: does not use Living arrangements: with family Gender identity (if verbalized by the patient): Female Spiritual care concerns: No Meds Home Medications and Allergies Home Medications ?Medication ?Instructions ?Recorded ?Confirmed ?Type sertraline 50 mg tablet 50 mg PO DAILY 05/28/21 04/05/25 History Zepbound 10 mg IM WEEKLY 12/11/23 03/27/25 History omeprazole 20 mg capsule,delayed 20 mg PO BID #60 caps 01/26/25 04/05/25 Rx release dicyclomine 10 mg capsule See Rx Instructions .Route 01/27/25 04/05/25 Rx .COMPLEX #360 caps sucralfate 1 gram tablet See Rx Instructions .Route 01/27/25 04/05/25 Rx .COMPLEX #360 tabs Allergies Allergy/AdvReac Type Severity Reaction Status Date / Time iodine Allergy Mild Rash Verified 04/05/25 09:50 Vital Signs Vital Signs - 24 hr 04/05/25 09:52 Temperature 97.7 F Pulse Rate 90 Respiratory Rate 16 Blood Pressure 133/86 Pulse Oximetry 97 Oxygen Delivery Room Air Exam Const: General: cooperative and healthy appearing Resp: Effort & Inspection: normal respiratory effort and able to speak in complete sentences Auscultation: clear to auscultation bilaterally Cardio: Rate: regular rate Rhythm: regular rhythm GI: Inspection: normal to inspection GI Palp: No No hepatosplenomegaly present Auscultation: normal bowel sounds Rectal Exam: deferred Skin: General skin exam: normal color Psych: Appearance: grossly normal Mental Status: mental status grossly normal Assessment and Plan Assessment and plan (1) Dysphagia: Code(s): R13.10 - Dysphagia, unspecified Status: Acute Assessment and Plan: The patient is deemed a good candidate for the procedure. Consent signed. Will proceed.
[2025-04-05 11:20] VITALS: BP 119/73; PULSE 70; RESP 20; O2SAT 97
--- NOTE | 2025-04-05 11:21 | S_PTH ---
PATIENT: Ivonne Lin LOC: [facility]#:[id number] AGE/SX: 59/F ROOM: RE04/05/[address]: Santana Tucker MD : 1965 BED: DIS: 04/05/2025 SPEC #: [id number] RECD: 04/05/25 11:40 STATUS: CHRISTELLE REAnai #: [id number] BON: 04/05/25 11:[address]: Santana Tucker DEPT: [facility] Surgical RECD BY: Lupe Chapman ENTERED: 04/05/25 11:41 SP TYPE: Surgical OTHR DR: Ángela Laird, MED DIR Tissues: A - Gastric Biopsy B - Gastric Biopsy C - Esophageal Biopsy Procedures: Hematoxylin and Eosin Stain Gross and Microscopic Level 4
[2025-04-05 11:30] VITALS: BP 133/89; PULSE 65; RESP 16; O2SAT 97
[2025-04-05 11:40] VITALS: BP 133/89; PULSE 64; RESP 18; O2SAT 96
== END 2025-04-05 11:47 | disposition home or self-care (01) ==
PROVIDERS: PCP Nurse Practitioner; Referring Provider Nurse Practitioner; Visit Provider Internal Medicine Gastroenterology
PROC: 0DJ08ZZ Inspection of Upper Intestinal Tract, Via Natural or Artificial Opening Endoscopic (ICD-10-PCS; CPT 43239; principal; 2025-04-05 11:00)
DX: K21.00 Gastro-esophageal reflux disease with esophagitis, without bleeding (principal); K29.30 Chronic superficial gastritis without bleeding; E11.9 Type 2 diabetes mellitus without complications; E78.00 Pure hypercholesterolemia, unspecified; M17.11 Unilateral primary osteoarthritis, right knee; F41.9 Anxiety disorder, unspecified; R51.9 Headache, unspecified; E66.01 Morbid (severe) obesity due to excess calories; Z68.41 Body mass index [BMI] 40.0-44.9, adult; Z98.890 Other specified postprocedural states; Z87.891 Personal history of nicotine dependence; Z80.3 Family history of malignant neoplasm of breast; Z80.0 Family history of malignant neoplasm of digestive organs; Z82.49 Family history of ischemic heart disease and other diseases of the circulatory system
CPT/HCPCS: 43239; 88305; J2003; J2704; J7120